=== PATIENT | male | born 1960 | race Hispanic/Latino ===

== ENCOUNTER 2020-08-22 12:07 | Inpatient (IN) | payer MEDICARE ==
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
--- NOTE | 2020-08-22 12:56 | Event Note ---
Date of service: 08/22/20 Face to Face: The patient was evaluated in the emergency department for symptoms described in the history of present illness. He/she was evaluated in the context of the global COVID-19 pandemic, which necessitated consideration that the patient might be at risk for infection with the virus that causes COVID-19. Institutional protocols and algorithms that pertain to the evaluation of patients at risk for COVID-19 are in a state of rapid change based on information released by regulatory bodies including the CDC and federal and state organizations. These policies and algorithms were followed during the patient's care in the emergency department. Please note that these policies, procedures and recommendations changed on a rapid basis. Patient is a 60-year-old gentleman. He is not known to myself previously. He presents to the ER with a complaint of left foot pain and swelling. This has been going on for about a month. Denies all other injuries or complaints. States the pain is aching and throbbing, and increases with range of motion, and ambulation. He denies hematemesis of bright red blood per rectum. He denies tingling and numbness. On examination: Head normocephalic atraumatic Neck is supple, with no meningeal signs. S1, S2, regular rate and rhythm. No murmurs, rubs or gallops. Breath sounds: Clear to auscultation bilaterally. Abdomen soft and benign, without rebound, guarding or peritoneal signs. There is no pulsatile abdominal mass. No spinal step-offs, full range of motion to the back, with no redness, pus or streaking. Extremities: 2+ radial pulses bilaterally. 2+ femoral pulses bilaterally. Left lower extremity distally is cool, and red, with delayed capillary refill, and unable to appreciate distal lower extremity pulses. Right lower extremity is warm and well-perfused, with 2+ dorsalis pedis pulses. Muscular compartments are soft. Patient found to have evidence of presumed subacute arterial occlusion. Have discussed pertinent history, physical, ultrasound/duplex results with vascular surgeon, Dr. Grant, who will come by and evaluate the patient shortly, and make further recommendations. Vital Signs 08/22/20 12:12 Temperature 97.3 F L Pulse Rate 84 Respiratory 18 Rate Blood Pressure 206/99 O2 Sat by Pulse 99 Oximetry Lab Results 08/22/20 08/22/20 08/22/20 Range/Units 12:51 12:51 12:51 WBC 9.4 (4.5-11.0) K/mm3 RBC 5.16 H (3.65-5.03) M/mm3 Hgb 14.7 (11.8-15.2) gm/dl Hct 44.0 (35.5-45.6) % MCV 85 (84-94) fl MCH 29 (28-32) pg MCHC 33 (32-34) % RDW 16.2 H (13.2-15.2) % Plt Count 334 (140-440) K/mm3 Lymph % (Auto) 21.9 (13.4-35.0) % [place] % (Auto) 6.7 (0.0-7.3) % Eos % (Auto) 2.2 (0.0-4.3) % Baso % (Auto) 0.6 (0.0-1.8) % Lymph # (Auto) 2.1 (1.2-5.4) K/mm3 [place] # (Auto) 0.6 (0.0-0.8) K/mm3 Eos # (Auto) 0.2 (0.0-0.4) K/mm3 Baso # (Auto) 0.1 (0.0-0.1) K/mm3 Seg Neutrophils % 68.6 (40.0-70.0) % Seg Neutrophils # 6.4 (1.8-7.7) K/mm3 PT 11.5 L (12.2-14.9) Sec. INR 0.86 L (0.87-1.13) APTT 24.1 L (24.2-36.6) Sec. Sodium 142 (137-145) mmol/L Potassium 4.5 (3.6-5.0) mmol/L Chloride 103.9 (98-107) mmol/L Carbon Dioxide 29 (22-30) mmol/L Anion Gap 14 mmol/L BUN 21 H (9-20) mg/dL Creatinine 0.8 (0.8-1.3) mg/dL Estimated GFR > 60 ml/min BUN/Creatinine Ratio 26 % Glucose 100 (75-100) mg/dL Calcium 9.0 (8.4-10.2) mg/dL Total Bilirubin 0.20 (0.1-1.2) mg/dL AST 11 (5-40) units/L ALT 16 (7-56) units/L Alkaline Phosphatase 135 H (35-129) units/L Total Protein 7.6 (6.3-8.2) g/dL Albumin 4.0 (3.9-5) g/dL Albumin/Globulin Ratio 1.1 % DUPLEX DOPPLER LOWER EXTREMITY VEINS, LEFT INDICATION: LLE swelling, pain, discoloration. TECHNIQUE: Duplex doppler imaging was performed through the veins of the left lower extremity using venous compression and other maneuvers. COMPARISON: No relevant prior imaging study available. FINDINGS: Left Common femoral vein: Negative. Left Superficial femoral vein: Negative. Left Popliteal vein: Negative. Left Calf veins: Negative. Additional findings: None. IMPRESSION: No sonographic evidence for DVT in the left lower extremity. Signer Name: Erasmo Yu Jr, MD Signed: 08/22/2020 12:58 PM Workstation Name: [id number] DUPLEX DOPPLER LOWER EXTREMITY ARTERIAL, LEFT INDICATION / CLINICAL INFORMATION: LLE swelling, pain, discoloration. TECHNIQUE: Arterial duplex examination of the left lower extremity performed using B-mode, color flow and spectral Doppler assessment. FINDINGS: LEFT: - Atherosclerotic Plaque & Vessel: There is diffuse atherosclerotic disease throughout the left lower extremity arterial tree. - Elevated Velocity (>200 cm/s) & Vessel: No elevated peak systolic velocities. However, there is very slow flow below the knee (8-16 cm/s). - Abnormal Waveform & Vessel: There are monophasic waveforms below the left knee. ADDITIONAL FINDINGS: There is complete occlusion extending proximally from the superficial femoral artery distally to the popliteal artery. IMPRESSION: 1. Diffuse atherosclerotic disease. 2. Complete occlusion of the left superficial femoral artery and popliteal artery. 3. Decreased velocities and monophasic waveforms below the left knee. CT or conventional angiogram should be considered. Doppler Waveform: - Triphasic is normal. - Biphasic is abnormal if clear transition from triphasic signal along vascular tree. - Monophasic is abnormal. Signer Name: Lui Velez MD Signed: 08/22/2020 1:06 PM Workstation Name: [id number] For this encounter I have reviewed the PA/PATTERN[employer] GRADER documentation, treatment plan, medical decision making, and I had face to face time with this patient.
[2020-08-22] MEDS ORDERED: HYDROcodone/ACETAMINOPHEN 5-325 MG TAB PO ONE (13:17)
[2020-08-22 13:39] LABS: Basophils # (Auto) 0.1 K/mm3 (0.0-0.1); Basophils % (Auto) 0.6 % (0.0-1.8); Eosinophils # (Auto) 0.2 K/mm3 (0.0-0.4); Eosinophils % (Auto) 2.2 % (0.0-4.3); Hemoglobin 14.7 gm/dl (11.8-15.2); Lymphocytes # (Auto) 2.1 K/mm3 (1.2-5.4); Lymphocytes % (Auto) 21.9 % (13.4-35.0); Mean Corpuscular HGB Conc 33 % (32-34); Mean Corpuscular Volume 85 fl (84-94); Monocytes # (Auto) 0.6 K/mm3 (0.0-0.8); Monocytes % (Auto) 6.7 % (0.0-7.3); Platelet Count 334 K/mm3 (140-440); Red Blood Count 5.16 M/mm3 (3.65-5.03); Red Cell Distribution Width 16.2 % (13.2-15.2)
[2020-08-22 13:49] LABS: INR 0.86 (0.87-1.13)
[2020-08-22 13:50] LABS: Partial Thromboplastin Time 24.1 Sec. (24.2-36.6)
--- NOTE | 2020-08-22 14:02 | Vascular Lab Report ---
DUPLEX DOPPLER LOWER EXTREMITY VEINS, LEFT INDICATION: LLE swelling, pain, discoloration. TECHNIQUE: Duplex doppler imaging was performed through the veins of the left lower extremity using venous compression and other maneuvers. COMPARISON: No relevant prior imaging study available. FINDINGS: Left Common femoral vein: Negative. Left Superficial femoral vein: Negative. Left Popliteal vein: Negative. Left Calf veins: Negative. Additional findings: None. IMPRESSION: No sonographic evidence for DVT in the left lower extremity. Signer Name: Erasmo Yu Jr, MD Signed: 08/22/2020 1:58 PM Workstation Name: [id number]
[2020-08-22 14:07] LABS: Alanine Aminotransferase 16 units/L (7-56); BUN/Creatinine Ratio 26; Blood Urea Nitrogen 21 mg/dL (9-20); Hemolysis Index 2
--- NOTE | 2020-08-22 14:10 | Vascular Lab Report ---
DUPLEX DOPPLER LOWER EXTREMITY ARTERIAL, LEFT INDICATION / CLINICAL INFORMATION: LLE swelling, pain, discoloration. TECHNIQUE: Arterial duplex examination of the left lower extremity performed using B-mode, color flow and spectr al Doppler assessment. FINDINGS: LEFT: - Atherosclerotic Plaque & Vessel: There is diffuse atherosclerotic disease throughout the left lower extremity arterial tree. - Elevated Velocity (>200 cm/s) & Vessel: No elevated peak systolic velocities. However, there is evelyn y slow flow below the knee (8-16 cm/s). - Abnormal Waveform & Vessel: There are monophasic waveforms below the left knee. ADDITIONAL FINDINGS: There is complete occlusion extending proximally from the superficial femoral ar zbigniew distally to the popliteal artery. IMPRESSION: 1. Diffuse atherosclerotic disease. 2. Complete occlusion of the left superficial femoral artery and popliteal artery. 3. Decreased velocities and monophasic waveforms below the left knee. CT or conventional angiogram should be considered. Doppler Waveform: - Triphasic is normal. - Biphasic is abnormal if clear transition from triphasic signal along vascular tree. - Monophasic is abnormal. Signer Name: Lui Velez MD Signed: 08/22/2020 2:06 PM Workstation Name: [id number]
[2020-08-22] MEDS ORDERED: ONDANSETRON 4 MG/2 ML INJ IV PRN (15:01)
[2020-08-22] MEDS ORDERED: MORPHINE 4 MG/1 ML INJ IV PRN (15:01)
[2020-08-22] MEDS ORDERED: ACETAMINOPHEN 325 MG TAB PO PRN (15:01)
[2020-08-22] MEDS ORDERED: HEPARIN 10,000 UNITS/10 ML VIAL IV PRN (15:02)
[2020-08-22] MEDS ORDERED: HEPARIN 10,000 UNITS/10 ML VIAL IV ONE (15:02)
--- NOTE | 2020-08-22 15:16 | History and Physical Report ---
History of Present Illness Chief complaint: My leg hurts History of present illness: 60 YO Male with HTN, Nicotine Dependence, DJD, Medication Noncompliance presents to ED for evaluation. Pt reports "My left leg hurts". Patient states that he has experienced left leg pain over the past 1 month with acutely worsening symptoms over the last 1 day. Patient states pain is 6/10, constant, throbbing in nature, worsened with weightbearing,. Patient transported to [facility] via private vehicle for further care and evaluation of the aforementioned symptoms. Patient was seen and evaluated in the emergency department. All lab and imaging studies reviewed. Patient underwent arterial Doppler which revealed left superficial femoral artery and left popliteal artery occlusion. Vascular surgery consulted. Patient treated with therapeutic anticoagulation and admission to telemetry due to increased risk of worsening symptoms. Patient denies fever, chills, chest pain, palpitation, productive cough, skin rash, recent ill contacts, or known exposure to COVID-19. No prior admission for review. All medication listed at time of admission has been reconciled. Past History Past Medical History: hypertension, other (See HPI) Past Surgical History: Other (Cervical spine surgery) Social history: smoking Family history: hypertension Medications and Allergies Allergies Allergy/AdvReac Type Severity Reaction Status Date / Time No Known Allergies Allergy Verified 08/22/20 15:04 Home Medications Medication Instructions Recorded Confirmed Last Taken Type Cyclobenzaprine HCl [Flexeril 5 MG 5 mg PO TID PRN #20 tab 02/02/15 Unknown Rx TAB] Ibuprofen [Motrin 800 MG tab] 800 mg PO Q8HR PRN #20 tablet 02/02/15 Unknown Rx Active Meds: Active Medications Acetaminophen (Acetaminophen 325 Mg Tab) 650 mg PO Q4H PRN PRN Reason: Pain MILD(1-3)/Fever >100.5/LIRIANO Heparin Sodium (Porcine) (Heparin 10,000 Units/10 Ml Vial) 3,200 unit 40 unit/kg (3200 unit) IV Q6H PRN PRN Reason: Anti-Xa Assay < 0.1 units/ml Heparin Sodium/Sodium Chloride (Heparin/ 0.45% Nacl-25,000 Unit/500 Ml) 25,000 unit in 500 mls @ 23 mls/hr IV TITR FEI; Protocol Sodium Chloride (Nacl 0.9% 500 Ml) 500 mls @ 999 mls/hr IV ONCE ONE Stop: 08/22/20 15:32 Morphine Sulfate (Morphine 4 Mg/1 Ml Inj) 1 mg IV Q4H PRN PRN Reason: Pain , Severe (7-10) Ondansetron HCl (Ondansetron 4 Mg/2 Ml Inj) 4 mg IV Q8H PRN PRN Reason: Nausea And Vomiting Oxycodone/Acetaminophen (Oxycodone /Acetaminophen 5-325mg Tab) 1 tab PO Q6H PRN PRN Reason: Pain, Moderate (4-6) Sodium Chloride (Sodium Chloride 0.9% 10 Ml Flush Syringe) 10 ml IV BID FEI Sodium Chloride (Sodium Chloride 0.9% 10 Ml Flush Syringe) 10 ml IV PRN PRN PRN Reason: LINE FLUSH Review of Systems Constitutional: no weight loss, no weight gain, no fever, no chills Ears, nose, mouth and throat: no ear pain, no ear discharge, no nasal congestion, no nasal discharge, no sinus pressure Cardiovascular: no chest pain, no orthopnea, no palpitations, no rapid/irregular heart beat, no edema, no syncope Respiratory: no cough, no cough with sputum, no hemoptysis, no shortness of breath Gastrointestinal: no abdominal pain, no nausea, no constipation, no hematemesis Genitourinary Male: no hematuria, no flank pain, no discharge, no urinary frequency, no nocturia Rectal: no pain, no incontinence, no bleeding Musculoskeletal: no neck stiffness, no neck pain, no arm numbness/tingling, no shooting leg pain, no leg numbness/tingling Integumentary: no rash, no pruritis, no redness, no sores Neurological: no transient paralysis, no weakness, no numbness, no tingling Psychiatric: no anxiety, no change in sleep habits, no insomnia, no hypersomnia, no suicidal ideation Endocrine: no cold intolerance, no heat intolerance, no polyphagia, no excessive sweating Hematologic/Lymphatic: no easy bruising, no easy bleeding Exam - Constitutional Vitals: Temp Pulse Resp BP Pulse Ox 97.3 F L 84 18 206/99 99 08/22/20 12:12 08/22/20 12:12 08/22/20 12:12 08/22/20 12:12 08/22/20 12:12 General appearance: Present: mild distress - EENT Eyes: Present: PERRL ENT: hearing intact, clear oral mucosa - Neck Neck: Present: supple, normal ROM - Respiratory Respiratory effort: normal Respiratory: bilateral: CTA - Cardiovascular Heart Sounds: Present: S1 & S2. Absent: rub, click - Extremities Extremities: pulses symmetrical, No edema Extremity abnormal: cold, pulses diminished, tenderness Peripheral Pulses: abnormal (Diminished pulses left femoral, left popliteal) - Abdominal General gastrointestinal: Present: soft, non-tender, non-distended, normal bowel sounds Male genitourinary: Present: normal - Integumentary Integumentary: Present: clear, warm, dry - Musculoskeletal Musculoskeletal: gait normal, strength equal bilaterally - Psychiatric Psychiatric: appropriate mood/affect, intact judgment & insight - Neurologic Neurologic: CNII-XII intact, moves all extremities Results - Labs CBC & Chem 7: 08/22/20 15:12 08/22/20 12:51 Labs: Abnormal lab results 08/22/20 08/22/20 08/22/20 Range/Units 12:51 12:51 12:51 RBC 5.16 H (3.65-5.03) M/mm3 RDW 16.2 H (13.2-15.2) % PT 11.5 L (12.2-14.9) Sec. INR 0.86 L (0.87-1.13) APTT 24.1 L (24.2-36.6) Sec. BUN 21 H (9-20) mg/dL Alkaline Phosphatase 135 H (35-129) units/L Total Creatine Kinase (55-170) units/L 08/22/20 Range/Units 12:51 RBC (3.65-5.03) M/mm3 RDW (13.2-15.2) % PT (12.2-14.9) Sec. INR (0.87-1.13) APTT (24.2-36.6) Sec. BUN (9-20) mg/dL Alkaline Phosphatase (35-129) units/L Total Creatine Kinase 30 L (55-170) units/L Assessment and Plan - Patient Problems (1) Femoral artery occlusion, left Current Visit: Yes Status: Acute Plan to address problem: Therapeutic anticoagulation with heparin, bilateral lower extremity duplex, CTA abdomen with runoff, vascular surgery consulted, surgical intervention as per surgery team. (2) Accelerated hypertension Current Visit: Yes Status: Acute Plan to address problem: Monitor blood pressure every shift, continue medical management. (3) Peripheral artery disease Current Visit: Yes Status: Acute Plan to address problem: Risk factor reduction, bilateral lower extremity Doppler, CT angio with runoffs, vascular surgery consulted, smoking cessation, supportive care. (4) Nicotine dependence Current Visit: Yes Status: Acute Qualifiers: Nicotine product type: cigarettes Substance use status: in withdrawal Qualified Code(s): F17.213 - Nicotine dependence, cigarettes, with withdrawal Plan to address problem: Smoking cessation counseling, supportive care, behavior change counseling, +15 minutes. (5) DVT prophylaxis Current Visit: Yes Status: Acute Plan to address problem: SCD to bilateral lower extremities while in bed, continue therapeutic anticoagulation.
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
[2020-08-22 15:24] LABS: Hemoglobin 13.9 gm/dl (11.8-15.2)
[2020-08-22] MEDS: HEPARIN/ 0.45% NACL DRIP 25,000 UNIT/500 ML BAG IV SCH (16:35)
--- NOTE | 2020-08-22 18:05 | Cat Scan Report ---
CTA ABDOMEN, PELVIS, AND LOWER EXTREMITIES INDICATION: arterial occlusion left left. TECHNIQUE: Axial CT images were obtained through the abdomen, pelvis and lower extremities after injection of IV contrast. 3 plane MIP reconstructions were produced. All CT scans at this location are performed usi ng CT dose reduction for YUMIKO by means of automated exposure control. COMPARISON: Ultrasound earlier today. FINDINGS: CTA ABDOMEN: Abdominal Aorta: Minimal atherosclerotic calcification. No acute finding. Caliber is normal. Celiac Artery: No significant abnormality. Superior Mesenteric Artery: No significant abnormality. Right Renal Artery: No significant abnormality. Left Renal Artery: No significant abnormality. Inferior Mesenteric Artery: No significant abnormality. CTA PELVIS: RIGHT: Common Iliac Artery: Mild atherosclerotic calcification and mild ectasia. Internal Iliac Artery: Chronically thrombosed. External Iliac Artery: No significant abnormality. LEFT: Common Iliac Artery: Mild atherosclerotic calcification. Internal Iliac Artery: Mild atherosclerotic calcification. External Iliac Artery: No significant abnormality. CTA LOWER EXTREMITIES: RIGHT LOWER EXTREMITY: Common Femoral Artery: No significant abnormality. Superficial Femoral Artery: No significant abnormality. Profunda Femoral Artery: No significant abnormality. Popliteal Artery: No significant abnormality. Anterior Tibial Artery: No significant abnormality. Tibioperoneal Trunk: No significant abnormality. Posterior Tibial Artery: No significant abnormality. Peroneal Artery: No significant abnormality. Ankle runoff: Three vessel. LEFT LOWER EXTREMITY: Common Femoral Artery: No significant abnormality. Superficial Femoral Artery: There is high-grade stenosis within the proximal several centimeters of t he vessel. There is complete occlusion distal to this. Profunda Femoral Artery: No significant abnormality. Popliteal Artery: Complete occlusion. Anterior Tibial Artery: Diminutive throughout. Tibioperoneal Trunk: Complete occlusion. Posterior Tibial Artery: Reconstituted by collaterals and patent. Peroneal Artery: Reconstituted by collaterals and patent. Ankle runoff: Three vessel. NONTARGET STRUCTURES: ABDOMEN:Hepatic steatosis. No acute process. PELVIS:Colonic diverticulosis. Bladder wall thickening may be due at least in part to bladder decompr ession. LOWER EXTREMITIES:No significant abnormality. SKELETAL: No significant abnormality. ADDITIONAL FINDINGS: None. IMPRESSION: 1. There is advanced narrowing of the proximal left superficial femoral artery. A majority of the lef t SFA is completely occluded, as is the left popliteal artery and tibioperoneal trunk. The left calf vessels are reconstituted and there appears to be three-vessel runoff to the left ankle. The left ant erior tibial artery is diminutive with probable high-grade stenosis throughout. 2. No significant stenosis or occlusion is seen in the right lower extremity. 3. Additional incidental findings as above. Signer Name: Lui Velez MD Signed: 08/22/2020 6:00 PM Workstation Name: [id number]
[2020-08-22] MEDS ORDERED: SODIUM CHLORIDE 0.9% 500 ML 500 ML ONE (18:42)
[2020-08-22] MEDS: SODIUM CHLORIDE 0.9% 500 ML 500 ML IV ONE ×2 (18:47→19:30)
[2020-08-22] MEDS: oxyCODONE /ACETAMINOPHEN 5-325MG TAB PO PRN (19:35)
[2020-08-23 05:03] LABS: Basophils % (Auto) 0.4 % (0.0-1.8); Eosinophils # (Auto) 0.2 K/mm3 (0.0-0.4); Eosinophils % (Auto) 2.1 % (0.0-4.3); Hematocrit 42.5 % (35.5-45.6); Hemoglobin 13.9 gm/dl (11.8-15.2); Lymphocytes # (Auto) 2.5 K/mm3 (1.2-5.4); Lymphocytes % (Auto) 26.3 % (13.4-35.0); Mean Corpuscular HGB Conc 33 % (32-34); Mean Corpuscular Volume 85 fl (84-94); Monocytes # (Auto) 0.6 K/mm3 (0.0-0.8); Monocytes % (Auto) 6.6 % (0.0-7.3); Platelet Count 306 K/mm3 (140-440); Red Blood Count 4.97 M/mm3 (3.65-5.03); Red Cell Distribution Width 16.2 % (13.2-15.2)
[2020-08-23 05:24] LABS: BUN/Creatinine Ratio 22; Blood Urea Nitrogen 20 mg/dL (9-20); Calcium 9.2 mg/dL (8.4-10.2); Hemolysis Index 1
[2020-08-23] MEDS: oxyCODONE /ACETAMINOPHEN 5-325MG TAB PO PRN (08:46)
[2020-08-23] MEDS: HEPARIN/ 0.45% NACL DRIP 25,000 UNIT/500 ML BAG IV SCH (08:56)
--- NOTE | 2020-08-23 08:58 | Progress Note ---
Assessment and Plan Assessment and plan: Critical limb ischemia/left femoral artery occlusion. Arterial Doppler demonstrates occlusion of the left proximal superficial femoral artery to popliteal artery. Peripheral vascular disease. As above. Accelerated hypertension. Continue antihypertensive medications. Tobacco abuse. Patient has a 81-95-uaps-year history of smoking 08/23/2020. CTA revealed advanced narrowing of the proximal left superficial femoral artery with a majority of the left S FA completely occluded along with the left popliteal artery and tibioperoneal trunk. The left calf vessels are reconstituted and there appears to be three-vessel runoff to the left ankle. The left anterior tibial artery is diminutive with probable high-grade stenosis throughout. Continue heparin drip per vascular recommendations. Continue IV fluid hydration. Patient for Trial Consultant today for revascularization. Patient understands that without revascularization he will have limb loss given his symptoms with gangrene. History Interval history: No new issues overnight. Hospitalist Physical - Constitutional Vitals: Temp Pulse Resp BP Pulse Ox 97.8 F 68 18 154/77 97 08/23/20 08:00 08/23/20 08:00 08/23/20 08:00 08/23/20 08:00 08/23/20 08:00 General appearance: Present: mild distress - EENT Eyes: Present: PERRL, EOM intact ENT: hearing intact, clear oral mucosa, dentition normal - Neck Neck: Present: supple, normal ROM - Respiratory Respiratory effort: normal Respiratory: bilateral: CTA - Cardiovascular Rhythm: regular Heart Sounds: Present: S1 & S2. Absent: gallop, rub - Extremities Extremities: no ischemia, No edema, Full ROM - Abdominal General gastrointestinal: soft, non-tender, non-distended, normal bowel sounds - Integumentary Integumentary: Present: clear, warm, dry - Neurologic Neurologic: CNII-XII intact, moves all extremities Results - Labs CBC & Chem 7: 08/23/20 04:25 08/23/20 04:25 Labs: Laboratory Last Values WBC 9.7 K/mm3 (4.5-11.0) 08/23/20 04:25 RBC 4.97 M/mm3 (3.65-5.03) 08/23/20 04:25 Hgb 13.9 gm/dl (11.8-15.2) 08/23/20 04:25 Hct 42.5 % (35.5-45.6) 08/23/20 04:25 MCV 85 fl (84-94) 08/23/20 04:25 MCH 28 pg (28-32) 08/23/20 04:25 MCHC 33 % (32-34) 08/23/20 04:25 RDW 16.2 % (13.2-15.2) H 08/23/20 04:25 Plt Count 306 K/mm3 (140-440) 08/23/20 04:25 Lymph % (Auto) 26.3 % (13.4-35.0) 08/23/20 04:25 [place] % (Auto) 6.6 % (0.0-7.3) 08/23/20 04:25 Eos % (Auto) 2.1 % (0.0-4.3) 08/23/20 04:25 Baso % (Auto) 0.4 % (0.0-1.8) 08/23/20 04:25 Lymph # (Auto) 2.5 K/mm3 (1.2-5.4) 08/23/20 04:25 [place] # (Auto) 0.6 K/mm3 (0.0-0.8) 08/23/20 04:25 Eos # (Auto) 0.2 K/mm3 (0.0-0.4) 08/23/20 04:25 Baso # (Auto) 0.0 K/mm3 (0.0-0.1) 08/23/20 04:25 Seg Neutrophils % 64.6 % (40.0-70.0) 08/23/20 04:25 Seg Neutrophils # 6.3 K/mm3 (1.8-7.7) 08/23/20 04:25 PT 11.5 Sec. (12.2-14.9) L 08/22/20 12:51 INR 0.86 (0.87-1.13) L 08/22/20 12:51 APTT 24.1 Sec. (24.2-36.6) L 08/22/20 12:51 Heparin Anti-Xa Level 0.14 U.I./ml (0.3-0.7) L 08/23/20 07:21 Sodium 138 mmol/L (137-145) 08/23/20 04:25 Potassium 4.5 mmol/L (3.6-5.0) 08/23/20 04:25 Chloride 101.8 mmol/L (98-107) 08/23/20 04:25 Carbon Dioxide 27 mmol/L (22-30) 08/23/20 04:25 Anion Gap 14 mmol/L 08/23/20 04:25 BUN 20 mg/dL (9-20) 08/23/20 04:25 Creatinine 0.9 mg/dL (0.8-1.3) 08/23/20 04:25 Estimated GFR > 60 ml/min 08/23/20 04:25 BUN/Creatinine Ratio 22 % 08/23/20 04:25 Glucose 101 mg/dL (75-100) H 08/23/20 04:25 Calcium 9.2 mg/dL (8.4-10.2) 08/23/20 04:25 Total Bilirubin 0.20 mg/dL (0.1-1.2) 08/22/20 12:51 AST 11 units/L (5-40) 08/22/20 12:51 ALT 16 units/L (7-56) 08/22/20 12:51 Alkaline Phosphatase 135 units/L (35-129) H 08/22/20 12:51 Total Creatine Kinase 30 units/L (55-170) L 08/22/20 12:51 Total Protein 7.6 g/dL (6.3-8.2) 08/22/20 12:51 Albumin 4.0 g/dL (3.9-5) 08/22/20 12:51 Albumin/Globulin Ratio 1.1 % 08/22/20 12:51 Active Medications - Current Medications Current Medications: Generic Name Dose Route Start Last Admin Trade Name Freq PRN Reason Stop Dose Admin Acetaminophen 650 mg 08/22/20 15:01 Acetaminophen 325 Mg Tab PO Q4H PRN Pain MILD(1-3)/Fever >100.5/LIRIANO Heparin Sodium (Porcine) 3,200 unit 08/22/20 15:02 Heparin 10,000 Units/10 Ml Vial 40 unit/kg (3200 unit) IV Q6H PRN Anti-Xa Assay < 0.1 units/ml Heparin Sodium/Sodium Chloride 25,000 unit in 500 mls @ 23 mls/hr 08/22/20 16:00 08/23/20 08:48 Heparin/ 0.45% Nacl-25,000 Unit/500 Ml IV 1,200 units/hr TITR FEI 24 mls/hr Titration Protocol 1,150 UNITS/HR Morphine Sulfate 1 mg 08/22/20 15:01 08/22/20 15:53 Morphine 4 Mg/1 Ml Inj IV 1 mg Q4H PRN Administration Pain , Severe (7-10) Ondansetron HCl 4 mg 08/22/20 15:01 Ondansetron 4 Mg/2 Ml Inj IV Q8H PRN Nausea And Vomiting Oxycodone/Acetaminophen 1 tab 08/22/20 15:01 08/23/20 08:46 Oxycodone /Acetaminophen 5-325mg Tab PO 1 tab Q6H PRN Administration Pain, Moderate (4-6) Sodium Chloride 10 ml 08/22/20 22:00 08/22/20 21:55 Sodium Chloride 0.9% 10 Ml Flush Syringe IV 10 ml BID FEI Administration Sodium Chloride 10 ml 08/22/20 15:01 Sodium Chloride 0.9% 10 Ml Flush Syringe IV PRN PRN LINE FLUSH
[2020-08-23] MEDS ORDERED: SODIUM CHLORIDE 0.9% 500 ML 500 ML ONE (12:55)
[2020-08-23] MEDS ORDERED: SODIUM CHLORIDE 0.9% 500 ML 500 ML IV SCH (13:00)
[2020-08-23] MEDS ORDERED: HEPARIN/NS 5000 UNIT/500ML 1,000 ML IR ONE (15:03)
[2020-08-23] MEDS: LIDOCAINE (2%) 20 MG/1 ML VIAL 20 ML MDV INFILTRATI ONE ×2 (15:54→16:00)
[2020-08-23] MEDS: MIDAZOLAM 2 MG/2 ML INJ ONE ×6 (15:54→17:27)
[2020-08-23] MEDS: fentaNYL 100 MCG/2 ML INJ ONE ×6 (15:54→17:27)
[2020-08-23] MEDS: HEPARIN 10,000 UNITS/10 ML VIAL ONE ×4 (16:33→18:55)
[2020-08-23] MEDS ORDERED: hydrALAZINE 20 MG/1 ML INJ ONE (16:54)
[2020-08-23] MEDS ORDERED: SODIUM CHLORIDE 0.9% 1000 ML 1,000 ML ONE ×2 (17:02→19:53)
[2020-08-23] MEDS: diphenhydrAMINE 50 MG/ML VIAL ONE ×2 (17:15→17:27)
[2020-08-23] MEDS ORDERED: NITROGLYCERIN SYRINGE 3 ML ONE ×2 (17:51→18:27)
[2020-08-23] MEDS ORDERED: WATER FOR INJ Sterile (PF) 10 ML ONE (18:27)
[2020-08-23] MEDS ORDERED: ALTEPLASE 2 MG INJ ONE ×2 (18:32→19:24)
[2020-08-23] MEDS ORDERED: HEPARIN/NS 5000 UNIT/500ML 500 ML IR ONE (18:57)
[2020-08-23] MEDS ORDERED: HEPARIN 10,000 UNITS/10 ML VIAL ONE (19:24)
[2020-08-23] MEDS ORDERED: ACETAMINOPHEN 325 MG TAB PO PRN (19:33)
[2020-08-23] MEDS ORDERED: HYDROcodone/ACETAMINOPHEN 5-325 MG TAB PO PRN (19:33)
[2020-08-23] MEDS ORDERED: ONDANSETRON 4 MG/2 ML INJ IV PRN (19:33)
[2020-08-23] MEDS ORDERED: MORPHINE 2 MG/1 ML INJ IV PRN (19:33)
[2020-08-23] MEDS ORDERED: MORPHINE 4 MG/1 ML INJ IV PRN (19:39)
[2020-08-23] MEDS ORDERED: ALTEPLASE 20 MG in SODIUM CHLORIDE 0.9% 500 ML 500 ML EKOSDLUMEN STA (19:42)
--- NOTE | 2020-08-23 19:43 | Operative Report ---
Operative Report Operative Report: Date of Procedure: 08/23/2020 Pre-operative Diagnosis: Left Lower Extremity Critical Limb Ischemia Post-operative Diagnosis: Same Procedure(s): 1. Ultrasound-Guided Access Right Common Femoral Artery 2. Diagnostic Aortogram (No Previous Films for Comparison) 3. Diagnostic Left Lower Extremity Angiogram (No Previous Films for Comparison) 4. Atherectomy with Angioplasty and Stenting of the Left SFA And Popliteal Artery With a 2.4/3.4 Jetstream Atherectomy Catheter, a 5.0 x 200 Angiosculpt Balloon & 5.0 x 150 IN.PACT Drug-Coated Balloon (x2) in The Popliteal Artery, and 6.0 x 200 Angiosculpt Balloon and 6.0 x 150 IN.Pact Drug-Coated Balloon (x2) in the SFA and a 7 x 200 & 7 x 120 EverFlex Self-Expanding Stent 5. Angioplasty and Stent Of Left Tibioperoneal Trunk with 4.0 x 150 IN.Pact Drug-Coated Balloon and 4.5 x 30 Medtronic Resolute Marcin Drug-Eluting Stent and 5.0 x 40 EverFlex Self-Expanding Stent 6. Angioplasty of left Posterior Tibial Artery with a 3.0 x 100 Angiosculpt Balloon and 4.0 x 150 IN.PACT Drug-Coated Balloon (x2) 7. Thrombolysis of Left Lower Extremity with 135 x 50 EKOS Thrombolysis Catheter 8. Radiologic Supervision with Interpretation 9. Monitored Moderate Sedation (Total Anesthesia Time: 212 Minutes) Surgeon: Justino Hay M.D. Director Of Occupational Therapy: None Anesthesia: Monitored Moderate Sedation Total Anesthesia Time: 212 Minutes EBL: Minimal Counts: Correct Complications: None Condition: Stable Specimen: None Indication: The patient is a 60-year-old male with a history of tobacco abuse who presented to the emergency department with a history of 1 month of left foot pain. He reports a history of falling and hitting his knee with some swelling around the knee and began noticing some pain in his left foot that he thought would eventually resolve. This progressed to numbness in the toes with progressively worsening pain. He eventually had to relieve his pain by hanging his foot off of the bed. This prompted him to present to the emergency department with his complaints. He underwent a CTA of his abdomen pelvis with runoff that demonstrated possible occlusion of the left SFA, popliteal artery, and origin of the tibial vessels. He is in need of a diagnostic angiogram with possible intervention. He was given the risk, benefits, and alternative procedures and consented to the procedure. Angiographic Findings: The diagnostic aortogram revealed that the aorta was patent without evidence of aneurysmal dilatation, thrombus, or flow-limiting stenosis. The bilateral common iliac arteries were patent without evidence of flow-limiting stenosis, aneurysmal dilatation, or thrombus. The left lower extremity angiogram revealed that the left hypogastric and external iliac arteries were both patent without evidence of flow-limiting stenosis. The left common femoral and profunda artery were patent without evidence of significant flow-limiting stenosis. The SFA had a short segment that was patent and was occluded with a sharp cut off with the appearance of possible thrombus. Multiple collaterals were seen throughout the thigh however there was no reconstitution of flow noted within the SFA or popliteal artery. The origin of the tibial vessels were all occluded. There was reconstitution of flow within the anterior tibial artery in the proximal portion of the artery however the artery was atretic throughout its course and occluded in the distal portion of the ankle. The tibial peroneal artery was occluded and the peroneal artery was filling through collaterals. The peroneal artery appeared to be patent throughout its course without significant flow- limiting stenosis and filled the dorsalis pedis artery in the foot through collaterals. The posterior tibial artery filled through collaterals in the distal third of the calf and was and was stenotic with approximately 40 to 50% stenosis throughout the remainder of its course but was patent into the foot. After intervention the SFA and popliteal artery were patent as well as the posterior tibial artery however the flow was sluggish secondary to thrombus that was noted in the distal posterior tibial artery. There was also thrombus noted in the distal popliteal artery. The EKOS Thrombolysis Catheter was placed with the distal tip in the mid posterior tibial artery and the proximal portion of the treatment zone was in the proximal SFA. Description of Procedure: The patient was brought to the [facility] and laid in supine position. After a timeout was performed his right groin was prepped and draped in normal sterile fashion. Ultrasound was used to identify the right common femoral artery and confirm patency. Once patency was confirmed the overlying skin and soft tissue was anesthetized with lidocaine. An 11 blade was used to make a small stab incision and then a curved hemostat was used with ultrasound guidance to bluntly dissect down to the anterior surface of the right common femoral artery. A 21- gauge micropuncture needle was used ultrasound guidance to enter the right common femoral artery and a 0.018 micropuncture wire was advanced to the artery. The needle was removed and the micropuncture sheath was advanced over the wire by Seldinger technique. The inner cannula and wire were removed and a 0.035 Bentson wire was advanced to the aorta. The micropuncture sheath was then exchanged for a 5 Swedish sheath by Seldinger technique. An Omni Flush catheter was advanced into the aorta and after removing the wire a diagnostic aortogram was performed with the previously described findings. The Omni Flush catheter and Bentson wire were then advanced up and over the bifurcation and a diagnostic left lower extremity angiogram was performed the previously described findings. I advanced the Bentson wire into the profunda artery and then exchanged the 5 Swedish sheath for a 7 Swedish 45 cm destination sheath and at that point I syste mically heparinized the patient with 5000 units of heparin IV and this was redosed with 1000 units of heparin IV every 45 minutes into the completion of the case. I then used a Navicross catheter and 0.018 Gladius Wire and was able to traverse the occluded SFA and advanced the wire into the distal posterior tibial artery. I was unable to advance the Navicross catheter over the wire so I exchanged the Navicross catheter for 0.018 [place] crossing catheter. I was only able to advance the crossing catheter into the distal popliteal artery so I exchanged the Gladius Wire for a 0.014 Choice PT wire. I was able to advance the Choice PT wire into the posterior tibial artery and then attempted to advance a 0.014 [place] crossing catheter into the posterior tibial artery however this was also unsuccessful so I used a 2.5-3.0 x 220 Nanocross Balloon and advanced this into the distal popliteal artery. I serially dilated a tract until I was able to advance this into the posterior tibial artery. Once the balloon was in the posterior tibial artery I exchanged the Choice PT wire for a 0.014 ThruWay Wire which I was able to advance into the pedal arch. I then used a 2.4/3.4 Jetstream Atherectomy Catheter to perform atherectomy of the SFA and popliteal artery with the blades down and blades up. I then performed angioplasty of the popliteal artery with a 5.0 x 200 Angiosculpt Balloon followed by angioplasty of the SFA with a 6.0 x 200 Angiosculpt Balloon. This was followed by angioplasty of the popliteal artery with 5.0 x 150 IN.PACT Drug- Coated Balloons (X2) and 6.0 x 150 IN.PACT Drug-Coated Balloons (x2). I then used a 3.0 x 100 Angiosculpt Balloon to perform angioplasty of the posterior tibial artery followed by angioplasty with 4.0 x 150 IN.PACT Balloons (x2). This resulted in the posterior tibial artery being patent with less than 10% residual stenosis however there was approximately 75% stenosis of the tibioperoneal trunk. There was some evidence of spasm within the arteries and pedal arch as well as possible small embolus at the distal posterior tibial artery. I advanced a Navicross catheter into the distal posterior tibial artery and was able to aspirate the thrombus. I then injected 600 mcg of nitroglycerin into the foot and 6 mg of TPA into the pedal arch. There were multiple areas of residual stenosis within the popliteal artery and SFA ranging from 50 to 70% and there appeared to be possible thrombus however the thrombus burden did not appear to be significant. I placed a 4.5 x 30 mm Medtronic Resolute Marcin Drug- Eluting Stent in the tibioperoneal trunk with a result of less than 15% residual stenosis. I then placed 7 x 200 and a 7 x 120 EverFlex Self-Expanding Stent extending from the proximal popliteal artery to the mid SFA. The stents were then postdilated with a 6 x 200 Sd balloon. The follow-up angiogram revealed that the flow was sluggish and it appeared that this was secondary to a small embolus in the proximal posterior tibial artery. I had removed my wire from the posterior tibial artery at this point and was going to perform a percutaneous embolectomy however upon trying to readvance my wire through my previously placed stent the wire would not easily passed through the stent. I eventually was able to use the Navicross catheter and a Bentson wire to pass the Bentson wire through the stent however the catheter would not pass. I used a 5 x 40 EverCross balloon to reopen the stent which appeared to have been crushed and then placed a 5 x 40 EverFlex Self-Expanding Stent within the previously placed stent to reinforce it. I was going to attempt to perform aspiration of the thrombus at this point however I performed another angiogram which revealed a significant amount of thrombus burden in the distal posterior tibial artery as well as what appeared to be thrombus in the popliteal artery. At this point I felt it would be a better plan to perform thrombolysis. I advanced an advantage wire into the distal posterior tibial artery and then advanced a 135 x 50 cm EKOS thrombolysis catheter into the distal posterior tibial artery. I primed the drug port with 4 mg of TPA and the coolant port with 2000 units of heparin. I primed the sheath with 3000 units of heparin. The sheath and thrombolysis catheter were then secured in position with 0 silks. The sheath and catheter were then dressed with sterile dressings. The patient tolerated the procedure well. He was transported to the intensive care unit in stable condition.
[2020-08-23] MEDS ORDERED: SODIUM CHLORIDE 0.9% 1000 ML 1,000 ML SHEATH SCH (19:45)
[2020-08-23] MEDS ORDERED: SODIUM CHLORIDE 0.9% 1000 ML 1,000 ML IV SCH ×2 (19:45)
[2020-08-23] MEDS ORDERED: SODIUM CHLORIDE 0.9% 1000 ML 1,000 ML EKOSCLUMEN SCH (19:45)
[2020-08-23 19:46] LABS: Basophils % (Auto) 0.3 % (0.0-1.8); Eosinophils # (Auto) 0.1 K/mm3 (0.0-0.4); Eosinophils % (Auto) 1.2 % (0.0-4.3); Hematocrit 42.6 % (35.5-45.6); Lymphocytes # (Auto) 1.5 K/mm3 (1.2-5.4); Lymphocytes % (Auto) 17.3 % (13.4-35.0); Mean Corpuscular HGB Conc 33 % (32-34); Mean Corpuscular Volume 85 fl (84-94); Monocytes # (Auto) 0.5 K/mm3 (0.0-0.8); Monocytes % (Auto) 5.3 % (0.0-7.3); Platelet Count 244 K/mm3 (140-440)
[2020-08-23] MEDS ORDERED: HEPARIN/ 0.45% NACL DRIP 25,000 UNIT/500 ML BAG ONE (19:53)
[2020-08-23 19:54] LABS: Blood Urea Nitrogen 17 mg/dL (9-20); Calcium 8.7 mg/dL (8.4-10.2); Hemolysis Index 12
[2020-08-23 19:58] LABS: BUN/Creatinine Ratio 24
[2020-08-23 20:00] LABS: INR 0.99 (0.87-1.13)
[2020-08-23] MEDS ORDERED: HEPARIN/ 0.45% NACL DRIP 25,000 UNIT/500 ML BAG SHEATH SCH (20:00)
[2020-08-23 21:14] LABS: Partial Thromboplastin Time 134.1 Sec. (24.2-36.6)
[2020-08-23] MEDS ORDERED: HALOPERIDOL 5 MG TAB PO PRN (21:15)
--- NOTE | 2020-08-23 21:29 | Event Note ---
Date: 08/23/20 Dr. Hay attempted revascularization but ultimately had to perform catheter directed thrombolysis of the left lower extremity. Contacted by ICU due to severe pain from left lower leg during thrombolysis. Still has baseline motor and sensory function. Only able to palpable right PT which is expected. Ordered dilaudid for pain control. Told patient tightening due to pain and does not listen and is shaking back and forth. Since unable to comply, will need to be sedated further. Ordered haldol for agitation.
[2020-08-23] MEDS: HYDROmorphone 1 MG/1 ML INJ IV PRN ×2 (21:40→23:45)
[2020-08-23] MEDS: SODIUM CHLORIDE 0.9% 1000 ML 1,000 ML IV SCH (21:40)
[2020-08-23] MEDS: HALOPERIDOL LACTATE 10 MG/5 ML ORAL LIQD PO PRN (21:56)
[2020-08-24] MEDS: HALOPERIDOL LACTATE 10 MG/5 ML ORAL LIQD PO PRN ×2 (00:57→04:05)
[2020-08-24 01:31] LABS: Basophils % (Auto) 0.2 % (0.0-1.8); Eosinophils % (Auto) 0.4 % (0.0-4.3); Hematocrit 39.5 % (35.5-45.6); Hemoglobin 13.1 gm/dl (11.8-15.2); Lymphocytes # (Auto) 1.7 K/mm3 (1.2-5.4); Lymphocytes % (Auto) 17.9 % (13.4-35.0); Mean Corpuscular HGB Conc 33 % (32-34); Mean Corpuscular Volume 85 fl (84-94); Monocytes # (Auto) 0.6 K/mm3 (0.0-0.8); Monocytes % (Auto) 6.2 % (0.0-7.3); Platelet Count 235 K/mm3 (140-440); Red Blood Count 4.63 M/mm3 (3.65-5.03); Red Cell Distribution Width 15.9 % (13.2-15.2)
[2020-08-24] MEDS: HYDROmorphone 1 MG/1 ML INJ IV PRN ×3 (01:56→06:02)
[2020-08-24 07:34] LABS: Basophils % (Auto) 0.3 % (0.0-1.8); Eosinophils % (Auto) 0.1 % (0.0-4.3); Hematocrit 38.9 % (35.5-45.6); Hemoglobin 12.7 gm/dl (11.8-15.2); Lymphocytes # (Auto) 0.9 K/mm3 (1.2-5.4); Mean Corpuscular HGB Conc 33 % (32-34); Mean Corpuscular Volume 86 fl (84-94); Monocytes # (Auto) 0.7 K/mm3 (0.0-0.8); Monocytes % (Auto) 8.8 % (0.0-7.3); Platelet Count 191 K/mm3 (140-440); Red Blood Count 4.54 M/mm3 (3.65-5.03); Red Cell Distribution Width 15.8 % (13.2-15.2)
[2020-08-24 07:50] LABS: BUN/Creatinine Ratio 19; Blood Urea Nitrogen 21 mg/dL (9-20); Calcium 8.8 mg/dL (8.4-10.2); Hemolysis Index 3
--- NOTE | 2020-08-24 10:29 | Progress Note ---
Assessment and Plan Assessment and plan: Critical limb ischemia/left femoral artery occlusion. Arterial Doppler demonstrates occlusion of the left proximal superficial femoral artery to popliteal artery. Peripheral vascular disease. As above. Accelerated hypertension. Continue antihypertensive medications. Tobacco abuse. Patient has a [id number]-pfge-year history of smoking 08/23/2020. CTA revealed advanced narrowing of the proximal left superficial femoral artery with a majority of the left SFA completely occluded along with the left popliteal artery and tibioperoneal trunk. The left calf vessels are reconstituted and there appears to be three-vessel runoff to the left ankle. The left anterior tibial artery is diminutive with probable high-grade stenosis throughout. Continue heparin drip per vascular recommendations. Continue IV fluid hydration. Patient for [employer] [facility] today for revascularization. Patient understands that without revascularization he will have limb loss given his symptoms with gangrene. 08/24/2020. Dr. Hay attempted revascularization but ultimately had to perform catheter directed thrombolysis of the left lower extremity on 08/23/2020. Continue medications for pain control. Continue heparin drip per vascular surgery. History Interval history: No new issues overnight. Hospitalist Physical - Constitutional Vitals: Temp Pulse Resp BP Pulse Ox 98.1 F 81 12 139/68 97 08/24/20 08:00 08/24/20 10:00 08/24/20 10:00 08/24/20 10:00 08/24/20 10:00 General appearance: Present: mild distress - EENT Eyes: Present: PERRL, EOM intact ENT: hearing intact, clear oral mucosa, dentition normal - Neck Neck: Present: supple, normal ROM - Respiratory Respiratory effort: normal Respiratory: bilateral: CTA - Cardiovascular Rhythm: regular Heart Sounds: Present: S1 & S2. Absent: gallop, rub - Extremities Extremities: no ischemia, No edema, Full ROM - Abdominal General gastrointestinal: soft, non-tender, non-distended, normal bowel sounds - Integumentary Integumentary: Present: clear, warm, dry - Neurologic Neurologic: CNII-XII intact, moves all extremities Results - Labs CBC & Chem 7: 08/24/20 07:16 08/24/20 07:16 Labs: Laboratory Last Values WBC 8.5 K/mm3 (4.5-11.0) 08/24/20 07:16 RBC 4.54 M/mm3 (3.65-5.03) 08/24/20 07:16 Hgb 12.7 gm/dl (11.8-15.2) 08/24/20 07:16 Hct 38.9 % (35.5-45.6) 08/24/20 07:16 MCV 86 fl (84-94) 08/24/20 07:16 MCH 28 pg (28-32) 08/24/20 07:16 MCHC 33 % (32-34) 08/24/20 07:16 RDW 15.8 % (13.2-15.2) H 08/24/20 07:16 Plt Count 191 K/mm3 (140-440) 08/24/20 07:16 Lymph % (Auto) 11.0 % (13.4-35.0) L 08/24/20 07:16 [place] % (Auto) 8.8 % (0.0-7.3) H 08/24/20 07:16 Eos % (Auto) 0.1 % (0.0-4.3) 08/24/20 07:16 Baso % (Auto) 0.3 % (0.0-1.8) 08/24/20 07:16 Lymph # (Auto) 0.9 K/mm3 (1.2-5.4) L 08/24/20 07:16 [place] # (Auto) 0.7 K/mm3 (0.0-0.8) 08/24/20 07:16 Eos # (Auto) 0.0 K/mm3 (0.0-0.4) 08/24/20 07:16 Baso # (Auto) 0.0 K/mm3 (0.0-0.1) 08/24/20 07:16 Seg Neutrophils % 79.8 % (40.0-70.0) H 08/24/20 07:16 Seg Neutrophils # 6.8 K/mm3 (1.8-7.7) 08/24/20 07:16 PT 12.9 Sec. (12.2-14.9) 08/23/20 19:30 INR 0.99 (0.87-1.13) 08/23/20 19:30 APTT 134.1 Sec. (24.2-36.6) H* 08/23/20 19:30 Fibrinogen 163 mg/dl (211-480) L 08/24/20 07:16 Heparin Anti-Xa Level 0.10 U.I./ml (0.3-0.7) L 08/24/20 07:16 Sodium 140 mmol/L (137-145) 08/24/20 07:16 Potassium 4.5 mmol/L (3.6-5.0) D 08/24/20 07:16 Chloride 105.0 mmol/L (98-107) 08/24/20 07:16 Carbon Dioxide 26 mmol/L (22-30) 08/24/20 07:16 Anion Gap 14 mmol/L 08/24/20 07:16 BUN 21 mg/dL (9-20) H 08/24/20 07:16 Creatinine 1.1 mg/dL (0.8-1.3) D 08/24/20 07:16 Estimated GFR > 60 ml/min 08/24/20 07:16 BUN/Creatinine Ratio 19 % 08/24/20 07:16 Glucose 114 mg/dL (75-100) H 08/24/20 07:16 Calcium 8.8 mg/dL (8.4-10.2) 08/24/20 07:16 Total Bilirubin 0.20 mg/dL (0.1-1.2) 08/22/20 12:51 AST 11 units/L (5-40) 08/22/20 12:51 ALT 16 units/L (7-56) 08/22/20 12:51 Alkaline Phosphatase 135 units/L (35-129) H 08/22/20 12:51 Total Creatine Kinase 30 units/L (55-170) L 08/22/20 12:51 Total Protein 7.6 g/dL (6.3-8.2) 08/22/20 12:51 Albumin 4.0 g/dL (3.9-5) 08/22/20 12:51 Albumin/Globulin Ratio 1.1 % 08/22/20 12:51 Keyes/IV: Voiding Method Urinal Active Medications - Current Medications Current Medications: Generic Name Dose Route Start Last Admin Trade Name Freq PRN Reason Stop Dose Admin Acetaminophen 650 mg 08/22/20 15:01 Acetaminophen 325 Mg Tab PO Q4H PRN Pain MILD(1-3)/Fever >100.5/LIRIANO Hydrocodone Bitart/Acetaminophen 2 each 08/23/20 19:33 Hydrocodone/Acetaminophen 5-325 Mg Tab PO Q6H PRN Pain, Moderate (4-6) Haloperidol Lactate 10 mg 08/23/20 21:19 08/24/20 04:05 Haloperidol Lactate 10 Mg/5 Ml Oral Liqd PO 10 mg Q3H PRN Administration Agitation Hydromorphone HCl 1 mg 08/24/20 03:22 08/24/20 06:02 Hydromorphone 1 Mg/1 Ml Inj IV 1 mg Q1H PRN Administration Pain , Severe (7-10) Alteplase, Recombinant 20 mg/ 500 mls @ 25 mls/hr 08/23/20 19:42 08/24/20 07:25 Sodium Chloride EKOSDLUMEN 08/24/20 15:41 Not Given DIRECT STA Heparin Sodium/Sodium Chloride 25,000 unit in 500 mls @ 10 mls/hr 08/23/20 20:00 Heparin/ 0.45% Nacl-25,000 Unit/500 Ml SHEATH DIRECT FEI Protocol 500 UNITS/HR Sodium Chloride 1,000 mls @ 30 mls/hr 08/23/20 19:45 Nacl 0.9% 1000 Ml IV DIRECT FEI Sodium Chloride 1,000 mls @ 30 mls/hr 08/23/20 19:45 Nacl 0.9% 1000 Ml SHEATH DIRECT FEI Sodium Chloride 1,000 mls @ 35 mls/hr 08/23/20 19:45 Nacl 0.9% 1000 Ml EKOSCLUMEN DIRECT FEI Sodium Chloride 1,000 mls @ 75 mls/hr 08/23/20 20:16 08/23/20 21:40 Nacl 0.9% 1000 Ml IV 75 mls/hr DIRECT FEI Administration Morphine Sulfate 4 mg 08/23/20 19:39 Morphine 4 Mg/1 Ml Inj IV Q4H PRN Pain , Severe (7-10) Ondansetron HCl 4 mg 08/23/20 19:33 08/23/20 23:45 Ondansetron 4 Mg/2 Ml Inj IV 4 mg Q8H PRN Administration Nausea And Vomiting Oxycodone/Acetaminophen 1 tab 08/22/20 15:01 08/23/20 08:46 Oxycodone /Acetaminophen 5-325mg Tab PO 1 tab Q6H PRN Administration Pain, Moderate (4-6) Sodium Chloride 10 ml 08/22/20 22:00 08/23/20 21:41 Sodium Chloride 0.9% 10 Ml Flush Syringe IV 10 ml BID FEI Administration Sodium Chloride 10 ml 08/22/20 15:01 Sodium Chloride 0.9% 10 Ml Flush Syringe IV PRN PRN LINE FLUSH
--- NOTE | 2020-08-24 10:44 | Consultation ---
History of Present Illness Consult date: 08/24/20 Requesting physician: WESLY BRAY Reason for consult: other (Acute Limb Ischemia s/p Angioplasty and Thrombolysis) History of present illness: PCCM CONSULT NOTE (Full dictation # [id number]) Please see dictated notes for full details Past History Past Medical History: hypertension, other (See HPI) Past Surgical History: Other (Cervical spine surgery) Social history: smoking Family history: hypertension Medications and Allergies Allergies Allergy/AdvReac Type Severity Reaction Status Date / Time No Known Allergies Allergy Verified 08/22/20 15:04 Home Medications Medication Instructions Recorded Confirmed Last Taken Type Cyclobenzaprine HCl [Flexeril 5 MG 5 mg PO TID PRN #20 tab 02/02/15 Unknown Rx TAB] Ibuprofen [Motrin 800 MG tab] 800 mg PO Q8HR PRN #20 tablet 02/02/15 Unknown Rx Active Meds: Active Medications Acetaminophen (Acetaminophen 325 Mg Tab) 650 mg PO Q4H PRN PRN Reason: Pain MILD(1-3)/Fever >100.5/LIRIANO Hydrocodone Bitart/Acetaminophen (Hydrocodone/Acetaminophen 5-325 Mg Tab) 2 each PO Q6H PRN PRN Reason: Pain, Moderate (4-6) Haloperidol Lactate (Haloperidol Lactate 10 Mg/5 Ml Oral Liqd) 10 mg PO Q3H PRN PRN Reason: Agitation Last Admin: 08/24/20 04:05 Dose: 10 mg Documented by: Hydromorphone HCl (Hydromorphone 1 Mg/1 Ml Inj) 1 mg IV Q1H PRN PRN Reason: Pain , Severe (7-10) Last Admin: 08/24/20 06:02 Dose: 1 mg Documented by: Alteplase, Recombinant 20 mg/ (Sodium Chloride) 500 mls @ 25 mls/hr EKOSDLUMEN DIRECT STA Stop: 08/24/20 15:41 Last Admin: 08/24/20 07:25 Dose: Not Given Documented by: Heparin Sodium/Sodium Chloride (Heparin/ 0.45% Nacl-25,000 Unit/500 Ml) 25,000 unit in 500 mls @ 10 mls/hr SHEATH DIRECT FEI; Protocol Sodium Chloride (Nacl 0.9% 1000 Ml) 1,000 mls @ 30 mls/hr IV DIRECT FEI Sodium Chloride (Nacl 0.9% 1000 Ml) 1,000 mls @ 30 mls/hr SHEATH DIRECT FEI Sodium Chloride (Nacl 0.9% 1000 Ml) 1,000 mls @ 35 mls/hr EKOSCLUMEN DIRECT FEI Sodium Chloride (Nacl 0.9% 1000 Ml) 1,000 mls @ 75 mls/hr IV DIRECT FEI Last Admin: 08/23/20 21:40 Dose: 75 mls/hr Documented by: Morphine Sulfate (Morphine 4 Mg/1 Ml Inj) 4 mg IV Q4H PRN PRN Reason: Pain , Severe (7-10) Ondansetron HCl (Ondansetron 4 Mg/2 Ml Inj) 4 mg IV Q8H PRN PRN Reason: Nausea And Vomiting Last Admin: 08/23/20 23:45 Dose: 4 mg Documented by: Oxycodone/Acetaminophen (Oxycodone /Acetaminophen 5-325mg Tab) 1 tab PO Q6H PRN PRN Reason: Pain, Moderate (4-6) Last Admin: 08/23/20 08:46 Dose: 1 tab Documented by: Sodium Chloride (Sodium Chloride 0.9% 10 Ml Flush Syringe) 10 ml IV BID FEI Last Admin: 08/23/20 21:41 Dose: 10 ml Documented by: Sodium Chloride (Sodium Chloride 0.9% 10 Ml Flush Syringe) 10 ml IV PRN PRN PRN Reason: LINE FLUSH Physical Examination Vital signs: Vital Signs Temp Pulse Resp BP Pulse Ox 97.3 F L 84 18 206/99 99 08/22/20 12:12 08/22/20 12:12 08/22/20 12:12 08/22/20 12:12 08/22/20 12:12 Results - Laboratory Findings CBC and BMP: 08/24/20 07:16 08/24/20 07:16 PT/INR, D-dimer PT 12.9 Sec. (12.2-14.9) 08/23/20 19:30 INR 0.99 (0.87-1.13) 08/23/20 19:30 Abnormal lab findings: Abnormal Labs 08/22/20 08/22/20 08/22/20 12:51 12:51 12:51 RBC 5.16 H RDW 16.2 H Lymph % (Auto) [place] % (Auto) Lymph # (Auto) Seg Neutrophils % PT 11.5 L INR 0.86 L APTT 24.1 L Fibrinogen Heparin Anti-Xa Level Sodium BUN 21 H Creatinine Glucose Alkaline Phosphatase 135 H Total Creatine Kinase 08/22/20 08/22/20 08/23/20 12:51 16:37 04:25 RBC RDW 16.2 H Lymph % (Auto) [place] % (Auto) Lymph # (Auto) Seg Neutrophils % PT INR APTT Fibrinogen Heparin Anti-Xa Level < 0.10 L Sodium BUN Creatinine Glucose Alkaline Phosphatase Total Creatine Kinase 30 L 08/23/20 08/23/20 08/23/20 04:25 07:21 19:30 RBC RDW 16.0 H Lymph % (Auto) [place] % (Auto) Lymph # (Auto) Seg Neutrophils % 75.9 H PT INR APTT Fibrinogen Heparin Anti-Xa Level 0.14 L Sodium BUN Creatinine Glucose 101 H Alkaline Phosphatase Total Creatine Kinase 08/23/20 08/23/20 08/24/20 19:30 19:30 00:35 RBC RDW 15.9 H Lymph % (Auto) [place] % (Auto) Lymph # (Auto) Seg Neutrophils % 75.3 H PT INR APTT 134.1 H* Fibrinogen Heparin Anti-Xa Level Sodium 135 L BUN Creatinine 0.7 L Glucose 128 H Alkaline Phosphatase Total Creatine Kinase 08/24/20 08/24/20 08/24/20 00:35 07:16 07:16 RBC RDW 15.8 H Lymph % (Auto) 11.0 L [place] % (Auto) 8.8 H Lymph # (Auto) 0.9 L Seg Neutrophils % 79.8 H PT INR APTT Fibrinogen Heparin Anti-Xa Level 0.10 L Sodium BUN 21 H Creatinine Glucose 114 H Alkaline Phosphatase Total Creatine Kinase 08/24/20 07:16 RBC RDW Lymph % (Auto) [place] % (Auto) Lymph # (Auto) Seg Neutrophils % PT INR APTT Fibrinogen 163 L Heparin Anti-Xa Level 0.10 L Sodium BUN Creatinine Glucose Alkaline Phosphatase Total Creatine Kinase
--- NOTE | 2020-08-24 13:13 | Progress Note ---
Assessment and Plan Patient will be brought down today to the [facility] for removal of thrombolytics catheter and any an additional intervention that may be necessary in an attempt to reperfuse his left lower leg. I the patient may ultimately require surgical bypass and likely at least a TMA. Subjective Date of service: 08/24/20 Principal diagnosis: Left leg ischemia Interval history: Patient with a history of peripheral vascular disease and likely acute on chron ic thrombus in his left leg. The patient overnight developed significantly altered mental status and agitation and was moving about the bed. He is currently in four-point restraints however, despite this the patient's leg remains bent. His leg to the forefoot is warm. The toes are blanched white consistent with ischemic changes. Unable to cooperate to determine his degree of mobility or sensation. Objective - Constitutional Vitals: Vital Signs - 12hr 08/24/20 08/24/20 08/24/20 01:11 01:21 01:30 Temperature Pulse Rate 92 H 89 88 Respiratory 17 13 15 Rate Blood Pressure 135/64 138/69 143/72 O2 Sat by Pulse 95 93 91 Oximetry 08/24/20 08/24/20 08/24/20 01:41 01:51 02:01 Temperature Pulse Rate 93 H 91 H 92 H Respiratory 17 13 14 Rate Blood Pressure 143/72 153/81 153/81 O2 Sat by Pulse 93 Oximetry 08/24/20 08/24/20 08/24/20 02:11 02:20 02:31 Temperature Pulse Rate 96 H 95 H 95 H Respiratory 22 13 11 L Rate Blood Pressure 152/70 152/70 137/85 O2 Sat by Pulse Oximetry 08/24/20 08/24/20 08/24/20 02:41 02:50 03:00 Temperature Pulse Rate 94 H 97 H 97 H Respiratory 15 13 23 Rate Blood Pressure 137/85 127/74 127/74 O2 Sat by Pulse 90 90 Oximetry 08/24/20 08/24/20 08/24/20 03:11 03:21 03:31 Temperature Pulse Rate 91 H 96 H Respiratory 19 18 Rate Blood Pressure 140/74 150/75 150/75 O2 Sat by Pulse 92 95 Oximetry 08/24/20 08/24/20 08/24/20 03:41 03:51 04:00 Temperature 98.5 F Pulse Rate 87 94 H 96 H Respiratory 14 14 12 Rate Blood Pressure 144/65 158/72 131/89 O2 Sat by Pulse 95 94 94 Oximetry 08/24/20 08/24/20 08/24/20 04:11 04:21 04:30 Temperature Pulse Rate 91 H 97 H 96 H Respiratory 12 13 10 L Rate Blood Pressure 144/65 144/57 133/81 O2 Sat by Pulse 95 91 Oximetry 08/24/20 08/24/20 08/24/20 04:41 04:51 05:01 Temperature Pulse Rate 90 90 85 Respiratory 11 L 12 13 Rate Blood Pressure 133/81 129/80 117/58 O2 Sat by Pulse 90 90 Oximetry 08/24/20 08/24/20 08/24/20 05:11 05:21 05:30 Temperature Pulse Rate 81 86 95 H Respiratory 13 15 12 Rate Blood Pressure 117/58 108/59 122/71 O2 Sat by Pulse 93 92 91 Oximetry 08/24/20 08/24/20 08/24/20 05:41 05:50 06:01 Temperature Pulse Rate 89 91 H 84 Respiratory 12 12 14 Rate Blood Pressure 122/71 122/71 123/55 O2 Sat by Pulse 90 95 Oximetry 08/24/20 08/24/20 08/24/20 06:11 06:21 06:30 Temperature Pulse Rate 87 88 88 Respiratory 15 10 L 14 Rate Blood Pressure 123/55 112/73 118/54 O2 Sat by Pulse 96 94 94 Oximetry 08/24/20 08/24/20 08/24/20 06:41 06:51 07:01 Temperature Pulse Rate 85 93 H 79 Respiratory 11 L 11 L 10 L Rate Blood Pressure 123/55 123/55 139/52 O2 Sat by Pulse 95 95 94 Oximetry 08/24/20 08/24/20 08/24/20 07:11 07:21 07:30 Temperature Pulse Rate 82 78 86 Respiratory 12 10 L 12 Rate Blood Pressure 139/52 141/57 131/56 O2 Sat by Pulse 97 97 97 Oximetry 08/24/20 08/24/20 08/24/20 07:41 07:51 08:00 Temperature 98.1 F Pulse Rate 75 82 Respiratory 10 L 9 L Rate Blood Pressure 131/56 97/54 O2 Sat by Pulse 97 96 95 Oximetry 08/24/20 08/24/20 08/24/20 08:01 08:11 08:21 Temperature Pulse Rate 71 75 69 Respiratory 10 L 9 L 9 L Rate Blood Pressure 106/49 106/49 118/46 O2 Sat by Pulse 95 96 98 Oximetry 08/24/20 08/24/20 08/24/20 08:30 08:41 08:51 Temperature Pulse Rate 80 77 94 H Respiratory 10 L 10 L 19 Rate Blood Pressure 120/60 120/60 129/57 O2 Sat by Pulse 96 99 99 Oximetry 08/24/20 08/24/20 08/24/20 09:00 09:11 09:21 Temperature Pulse Rate 80 77 73 Respiratory 10 L 12 10 L Rate Blood Pressure 132/54 132/54 134/58 O2 Sat by Pulse 96 97 96 Oximetry 08/24/20 08/24/20 08/24/20 09:31 09:41 09:51 Temperature Pulse Rate 76 78 82 Respiratory 11 L 10 L 11 L Rate Blood Pressure 99/54 99/54 115/65 O2 Sat by Pulse 96 98 98 Oximetry 08/24/20 08/24/20 08/24/20 10:00 10:11 10:21 Temperature Pulse Rate 81 81 77 Respiratory 12 13 10 L Rate Blood Pressure 139/68 139/68 133/64 O2 Sat by Pulse 97 98 98 Oximetry 08/24/20 08/24/20 08/24/20 10:30 10:41 10:51 Temperature Pulse Rate 84 73 79 Respiratory 12 11 L 14 Rate Blood Pressure 121/54 121/54 109/61 O2 Sat by Pulse 97 98 98 Oximetry 08/24/20 08/24/20 08/24/20 11:01 11:11 11:21 Temperature Pulse Rate 72 91 H 93 H Respiratory 12 12 12 Rate Blood Pressure 114/60 114/60 135/69 O2 Sat by Pulse 99 98 99 Oximetry 08/24/20 08/24/20 08/24/20 11:31 11:41 11:51 Temperature Pulse Rate 72 85 77 Respiratory 12 19 12 Rate Blood Pressure 143/65 143/65 143/63 O2 Sat by Pulse 99 100 98 Oximetry 08/24/20 12:00 Temperature 97.8 F Pulse Rate 70 Respiratory 12 Rate Blood Pressure 138/56 O2 Sat by Pulse 99 Oximetry General appearance: Present: mild distress - EENT ENT: hearing intact - Neck Neck: normal ROM - Respiratory Respiratory effort: normal Extremities: abnormal - Gastrointestinal General gastrointestinal: Present: deferred - Genitourinary Male genitourinary: deferred - Labs CBC & Chem 7: 08/24/20 07:16 08/24/20 07:16 Labs: Abnormal lab results 08/23/20 08/23/20 08/23/20 Range/Units 19:30 19:30 19:30 RDW 16.0 H (13.2-15.2) % Lymph % (Auto) (13.4-35.0) % [place] % (Auto) (0.0-7.3) % Lymph # (Auto) (1.2-5.4) K/mm3 Seg Neutrophils % 75.9 H (40.0-70.0) % APTT 134.1 H* (24.2-36.6) Sec. Fibrinogen (211-480) mg/dl Heparin Anti-Xa Level (0.3-0.7) U.I./ml Sodium 135 L (137-145) mmol/L BUN (9-20) mg/dL Creatinine 0.7 L (0.8-1.3) mg/dL Glucose 128 H (75-100) mg/dL 08/24/20 08/24/20 08/24/20 Range/Units 00:35 00:35 07:16 RDW 15.9 H 15.8 H (13.2-15.2) % Lymph % (Auto) 11.0 L (13.4-35.0) % [place] % (Auto) 8.8 H (0.0-7.3) % Lymph # (Auto) 0.9 L (1.2-5.4) K/mm3 Seg Neutrophils % 75.3 H 79.8 H (40.0-70.0) % APTT (24.2-36.6) Sec. Fibrinogen (211-480) mg/dl Heparin Anti-Xa Level 0.10 L (0.3-0.7) U.I./ml Sodium (137-145) mmol/L BUN (9-20) mg/dL Creatinine (0.8-1.3) mg/dL Glucose (75-100) mg/dL 08/24/20 08/24/20 Range/Units 07:16 07:16 RDW (13.2-15.2) % Lymph % (Auto) (13.4-35.0) % [place] % (Auto) (0.0-7.3) % Lymph # (Auto) (1.2-5.4) K/mm3 Seg Neutrophils % (40.0-70.0) % APTT (24.2-36.6) Sec. Fibrinogen 163 L (211-480) mg/dl Heparin Anti-Xa Level 0.10 L (0.3-0.7) U.I./ml Sodium (137-145) mmol/L BUN 21 H (9-20) mg/dL Creatinine (0.8-1.3) mg/dL Glucose 114 H (75-100) mg/dL Medications & Allergies - Medications Allergies/Adverse Reactions: Allergies No Known Allergies Allergy (Verified 08/22/20 15:04) Home Medications: Home Medications Medication Instructions Recorded Confirmed Last Taken Type Cyclobenzaprine HCl [Flexeril 5 MG 5 mg PO TID PRN #20 tab 02/02/15 Unknown Rx TAB] Ibuprofen [Motrin 800 MG tab] 800 mg PO Q8HR PRN #20 tablet 02/02/15 Unknown Rx Active Medications: Generic Name Dose Route Start Last Admin Trade Name Freq PRN Reason Stop Dose Admin Acetaminophen 650 mg 08/22/20 15:01 Acetaminophen 325 Mg Tab PO Q4H PRN Pain MILD(1-3)/Fever >100.5/LIRIANO Hydrocodone Bitart/Acetaminophen 2 each 08/23/20 19:33 Hydrocodone/Acetaminophen 5-325 Mg Tab PO Q6H PRN Pain, Moderate (4-6) Haloperidol Lactate 10 mg 08/23/20 21:19 08/24/20 04:05 Haloperidol Lactate 10 Mg/5 Ml Oral Liqd PO 10 mg Q3H PRN Administration Agitation Hydromorphone HCl 1 mg 08/24/20 03:22 08/24/20 06:02 Hydromorphone 1 Mg/1 Ml Inj IV 1 mg Q1H PRN Administration Pain , Severe (7-10) Alteplase, Recombinant 20 mg/ 500 mls @ 25 mls/hr 08/23/20 19:42 08/24/20 07:25 Sodium Chloride EKOSDLUMEN 08/24/20 15:41 Not Given DIRECT STA Heparin Sodium/Sodium Chloride 25,000 unit in 500 mls @ 10 mls/hr 08/23/20 20:00 Heparin/ 0.45% Nacl-25,000 Unit/500 Ml SHEATH DIRECT FEI Protocol 500 UNITS/HR Sodium Chloride 1,000 mls @ 30 mls/hr 08/23/20 19:45 Nacl 0.9% 1000 Ml IV DIRECT FEI Sodium Chloride 1,000 mls @ 30 mls/hr 08/23/20 19:45 Nacl 0.9% 1000 Ml SHEATH DIRECT FEI Sodium Chloride 1,000 mls @ 35 mls/hr 08/23/20 19:45 Nacl 0.9% 1000 Ml EKOSCLUMEN DIRECT FEI Sodium Chloride 1,000 mls @ 75 mls/hr 08/23/20 20:16 08/23/20 21:40 Nacl 0.9% 1000 Ml IV 75 mls/hr DIRECT FEI Administration Dexmedetomidine HCl 400 mcg/ 104 mls @ 3.64 mls/hr 08/24/20 14:00 Sodium Chloride IV TITRATE [facility] Protocol 0.2 MCG/KG/HR Morphine Sulfate 4 mg 08/23/20 19:39 Morphine 4 Mg/1 Ml Inj IV Q4H PRN Pain , Severe (7-10) Ondansetron HCl 4 mg 08/23/20 19:33 08/23/20 23:45 Ondansetron 4 Mg/2 Ml Inj IV 4 mg Q8H PRN Administration Nausea And Vomiting Oxycodone/Acetaminophen 1 tab 08/22/20 15:01 08/23/20 08:46 Oxycodone /Acetaminophen 5-325mg Tab PO 1 tab Q6H PRN Administration Pain, Moderate (4-6) Sodium Chloride 10 ml 08/22/20 22:00 08/24/20 10:44 Sodium Chloride 0.9% 10 Ml Flush Syringe IV 10 ml BID FEI Administration Sodium Chloride 10 ml 08/22/20 15:01 Sodium Chloride 0.9% 10 Ml Flush Syringe IV PRN PRN LINE FLUSH
--- NOTE | 2020-08-24 13:39 | Consultation ---
PULMONARY CRITICAL CARE CONSULT NOTE CONSULTING PHYSICIAN: Dr. Mitchell. REASON FOR CONSULTATION: Acute limb ischemia, status post undergoing thrombolytic therapy. CHIEF COMPLAINT AND HISTORY OF PRESENT ILLNESS: The patient is a 60-year-old male with past medical history significant amongst other things for nicotine dependence, medication noncompliance and I am told a history of alcohol abuse, who came to the Emergency Room complaining of pain in his left leg. Reportedly, the patient had been going on for about a month. It was otherwise acutely worsening symptoms on the day before presentation. It was 6/10 at that time, worsened with weightbearing. He was brought into the Emergency Room by private physician. Vascular Surgery was consulted. He was started on therapeutic anticoagulation and was admitted to the telemetry floor for further management. Yesterday, late in the day I believe, he did undergo a revascularization procedure. He had angioplasty and atherectomy and stenting of the left SFA and popliteal arteries. He also had angioplasty and stent of the left tibioperoneal trunk. He also had angioplasty of the left posterior tibial artery and then thrombolysis of the left lower extremity with 135/50 EKOS thrombolysis catheter. Post-procedure, he was brought into the Intensive Care Unit for continued thrombolytic therapy and close monitoring. When I stopped by to see him, he was resting in bed, agitated actually, a little element of delirium, much better than the night before I was told by the nurse. He was actually asking to be sedated because he could not stay still. He did deny chest pain, but his history was otherwise sketchy. He is also described as having a history of tobacco abuse. The above is as much of the history of presentation as I have. PAST MEDICAL HISTORY: Significant for alcohol abuse, hypertension, nicotine dependence, degenerative joint disease, hypertension. PAST SURGICAL HISTORY: He has had C-spine surgery. MEDICATIONS: He was on at the time I stopped by to see him were reviewed. According to the medication record, Tylenol 650 mg p.o. q. 4 hours p.r.n. mild pain or fevers, [place] 5/325 two tablets p.o. q. 6 hours p.r.n. moderate pain, thrombolytic therapy was being administered through the EKOS catheter. He was getting recombinant alteplase. Haldol 10 mg p.o. q. 3 hours p.r.n., heparin drip was also going 500 units per hour and adjusted per 10a levels. Dilaudid 1 mg IV q. 1 hours p.r.n. severe pain, morphine sulfate 4 mg IV q. 4 hours p.r.n. severe pain, Zofran 4 mg IV q. 8 hours p.r.n. nausea and vomiting. ALLERGIES: No known drug allergies. DIET: A well-built gentleman, acute weight loss or gain history is unknown. FAMILY AND SOCIAL HISTORY: Apparently lived in the community. He has a history of alcohol. He has a history of tobacco abuse and there is a family history of hypertension according to the records. REVIEW OF SYSTEMS: Difficult to obtain secondary to the delirium; however, since he has been here, no gross hematochezia or melena, no gross hematuria, no hematemesis, no hemoptysis. No witnessed seizures. Review of systems otherwise unobtainable or as in body of history as above. PHYSICAL EXAMINATION: VITAL SIGNS: On examination at presentation and since he has been afebrile, temperature was 97.3 degrees Fahrenheit, pulse of 84, respiratory rate of 18, blood pressure was 206/99, O2 sats were 99%, inspired oxygen concentration at that time were not recorded. When I stopped by to see him, his O2 sats were 98% and that was on 3 liters nasal cannula. GENERAL: He is a well-built elderly male; normocephalic, atraumatic; resting in bed with intermittent agitation and mildly increased respiratory effort at rest. HEAD, EYES, EARS, NOSE AND THROAT: Anicteric. No conjunctival erythema. Oropharynx was moist. No gross jugular venous distention, no thyromegaly. NECK: Grossly, there were no palpable lymph nodes in the supraclavicular or submandibular lymph node chains. LUNGS: Auscultation of both lung fernandez unremarkable. He had good bilateral air movement, no wheezing. HEART: Heart sounds 1 and 2 are heard, regular rate and rhythm at the time of my evaluation without overt rubs or murmurs. ABDOMEN: Soft, full, bowel sounds are positive, nontender, no palpable hepatosplenomegaly. EXTREMITIES: Without overt digital clubbing or cyanosis. He had trace pedal edema to the left lower extremity. He had erythema from the knees down to the shins. He was warm to touch and pedal pulses, dorsalis pedis was palpable, but diminished. The right lower extremity had EKOS catheter I believe in it. NEUROLOGIC: Pupils are equal, round, about 4 mm, reactive to light. Extraocular muscle movements were intact. He moves all 4 extremities spontaneously. SKIN: Normal turgor, otherwise in the areas examined without overt cellulitis or rash. Please see the wound care nurse's notes for full description of the skin. PSYCHIATRIC: Mood and affect were somewhat anxious. He had an element of delirium. His judgment and insight were inappropriate and not intact. LABORATORY DATA: From my review are as follows: Admission white cell count 9400, hemoglobin 13.9, hematocrit 42.8, platelet count was 313. INR was 0.86. Serum sodium was 142, potassium 4.5, chloride 104, bicarbonate 29, BUN 21, creatinine 0.8, and glucose of 100. Liver function tests are within normal limits. Fibrinogen within normal limits. His hemoglobin is 12.7 this morning. Most recent test. No microbiology studies. He had Dopplers of both lower extremities. There was no DVT in the left lower extremity seen. Arterial Dopplers of the left lower extremity showed complete occlusion of the left SFA and popliteal arteries. ASSESSMENT: 1. Acute limb ischemia. 2. Likely alcohol withdrawal with delirium tremens. 3. Peripheral vascular disease. 4. Accelerated hypertension. 4. Nicotine dependence. 5. History of alcohol abuse/dependence. PLAN: We will defer to the vascular team for continuation of the EKOS catheter system and thrombolysis. I will be starting him on GI prophylaxis, especially with him on thrombolytic therapy and full anticoagulation. Oxygen is going to be weaned to keep sats greater than or equal to about 92%. Aspiration precautions will be maintained. I will get a chest x-ray in light of his hypoxemia to make sure we are not missing any intrathoracic pathology. I will also begin a Precedex drip to help control the delirium/agitation. A 12-lead EKG will be ordered if one has not already been done to evaluate the QT interval. Flu and pneumonia vaccination will be addressed per protocol. Once he is more appropriate, counseling will be given for tobacco abstinence as well as alcohol abstinence. Thank you very much for the consult. We will follow along and make further recommendations as picture progresses/becomes clearer. JOB# [id number] AKIRA/SAMANTHA REEVES
[2020-08-24 13:42] LABS: Basophils % (Auto) 0.3 % (0.0-1.8); Eosinophils % (Auto) 0.3 % (0.0-4.3); Hemoglobin 12.6 gm/dl (11.8-15.2); Lymphocytes # (Auto) 1.2 K/mm3 (1.2-5.4); Lymphocytes % (Auto) 15.5 % (13.4-35.0); Mean Corpuscular HGB Conc 33 % (32-34); Mean Corpuscular Volume 86 fl (84-94); Monocytes # (Auto) 0.7 K/mm3 (0.0-0.8); Monocytes % (Auto) 9.7 % (0.0-7.3); Platelet Count 178 K/mm3 (140-440); Red Blood Count 4.44 M/mm3 (3.65-5.03); Red Cell Distribution Width 16.4 % (13.2-15.2)
[2020-08-24] MEDS: SODIUM CHLORIDE 0.9% 1000 ML 1,000 ML IV SCH (13:53)
[2020-08-24 13:55] LABS: Fibrinogen 184 mg/dl (211-480)
[2020-08-24] MEDS: FAMOTIDINE 20 MG/2 ML INJ IV SCH ×2 (13:57→21:49)
[2020-08-24] MEDS ORDERED: MIDAZOLAM 2 MG/2 ML INJ ONE (14:43)
[2020-08-24] MEDS ORDERED: HEPARIN 10,000 UNITS/10 ML VIAL ONE (14:43)
[2020-08-24] MEDS ORDERED: fentaNYL 100 MCG/2 ML INJ ONE (14:43)
[2020-08-24] MEDS ORDERED: HEPARIN/NS 5000 UNIT/500ML 500 ML IR ONE (14:43)
[2020-08-24] MEDS ORDERED: LIDOCAINE (2%) 20 MG/1 ML VIAL 20 ML MDV INFILTRATI ONE (14:44)
--- NOTE | 2020-08-24 15:34 | Operative Report ---
Operative Report Operative Report: Exam: Left lower extremity angiography, thrombolytics catheter removal Clinical indication: Patient with a history of acute on chronic thrombus in his left leg with acute on chronic limb ischemia of his left leg approximately 1 month duration Date: 08/24/2020 Procedure: Following an explanation of the risks, benefits and alternatives; written informed consent was obtained. The patient was brought to the angiographic suite and placed in supine position on the examination table. Initial fluoroscopic evaluation demonstrated appropriate positioning of the patient's indwelling sheath from his right common femoral artery into the left common femoral artery and appropriate positioning of the thrombolytics catheter which extends into the posterior tibial artery distally on the left. The patient's right groin and indwelling sheath were prepped and draped in the usual sterile fashion. 1% lidocaine was used for anesthesia at the sheath insertion site. The infusion wire was removed. Contrast was injected through the indwelling thrombolytics catheter. The catheter is in the proximal posterior tibial artery. There is brisk flow throughout the entire length of the posterior tibial artery with no significant thrombus. There is prompt opacification of the foot and digital vessels with retrograde filling of a pedal arch. The catheter was withdrawn proximally and additional angiography performed with the catheter in the distal SFA and common iliac artery. The remaining visualized vessels are widely patent. No significant residual thrombus is identified. The catheter was then removed. A guidewire was inserted and the sheath proximal lysed. Contrast was injected which demonstrates a distal abdominal aorta and bilateral common iliac arteries which are widely patent. The sheath was then removed and hemostasis achieved in the right groin using an Angio-Seal arterial closure device. A compression dressing was also applied. The patient tolerated the procedure well. There were no immediate postprocedure complications. A minimal amount of conscious sedation was performed under the guidance of radiologic nursing. Continuous cardiopulmonary monitoring was utilized. Impression: 1) Left lower extremity angiography with catheter placed in the posterior tibial artery, SFA and common iliac artery demonstrating no significant residual thrombus with patent inline flow to the foot. The posterior tibial artery is widely patent. 2) Removal of EKOS thrombolytics catheter.
[2020-08-24] MEDS: HEPARIN/ 0.45% NACL DRIP 25,000 UNIT/500 ML BAG IV SCH (16:00)
[2020-08-24] MEDS ORDERED: HEPARIN 10,000 UNITS/10 ML VIAL IV PRN (16:28)
--- NOTE | 2020-08-24 17:44 | Cat Scan Report ---
CT head/brain wo con INDICATION: ams. TECHNIQUE: Routine CT head. All CT scans at this location are performed using CT dose reduction for A HESHAM by means of automated exposure control. COMPARISON: None. FINDINGS: Intracranial: Kaplan-white matter differentiation is maintained. No intracranial hemorrhage. No extra a xial collection. No hydrocephalus. No herniation. Sinuses: Mild mucosal thickening in the left maxillary sinus.. Orbits: Globes are intact. Calvarium: No acute fracture. IMPRESSION: 1. No acute intracranial abnormality. Signer Name: Ricki Babcock MD Signed: 08/24/2020 5:39 PM Workstation Name: [id number]
[2020-08-24] MEDS: oxyCODONE /ACETAMINOPHEN 5-325MG TAB PO PRN (21:53)
[2020-08-24 22:13] LABS: Hemoglobin 12.6 gm/dl (11.8-15.2)
[2020-08-24 22:39] LABS: INR 1.09 (0.87-1.13)
[2020-08-24 22:40] LABS: Partial Thromboplastin Time 29.8 Sec. (24.2-36.6)
[2020-08-25] MEDS: HYDROmorphone 1 MG/1 ML INJ IV PRN (02:15)
--- NOTE | 2020-08-25 09:43 | Progress Note ---
Assessment and Plan Assessment and plan: Critical limb ischemia/left femoral artery occlusion. Arterial Doppler demonstrates occlusion of the left proximal superficial femoral artery to popliteal artery. Peripheral vascular disease. As above. Accelerated hypertension. Continue antihypertensive medications. Tobacco abuse. Patient has a 74-30-lyfa-year history of smoking 08/23/2020. CTA revealed advanced narrowing of the proximal left superficial femoral artery with a majority of the left SFA completely occluded along with the left popliteal artery and tibioperoneal trunk. The left calf vessels are reconstituted and there appears to be three-vessel runoff to the left ankle. The left anterior tibial artery is diminutive with probable high-grade stenosis throughout. Continue heparin drip per vascular recommendations. Continue IV fluid hydration. Patient for Cdl B Driver today for revascularization. Patient understands that without revascularization he will have limb loss given his symptoms with gangrene. 08/24/2020. Dr. Hay attempted revascularization but ultimately had to perform catheter directed thrombolysis of the left lower extremity on 08/23/2020. Continue medications for pain control. Continue heparin drip per vascular surgery. 08/25/2020. Patient with left lower extremity angiography and thrombolytics catheter removal. Transfer to telemetry if okay with vascular surgery. History Interval history: No new issues overnight. Hospitalist Physical - Constitutional Vitals: Temp Pulse Resp BP Pulse Ox 97.8 F 77 18 154/66 92 08/25/20 04:00 08/25/20 08:31 08/25/20 08:31 08/25/20 08:31 08/25/20 08:31 General appearance: Present: mild distress - EENT Eyes: Present: PERRL, EOM intact ENT: hearing intact, clear oral mucosa, dentition normal - Neck Neck: Present: supple, normal ROM - Respiratory Respiratory effort: normal Respiratory: bilateral: CTA - Cardiovascular Rhythm: regular Heart Sounds: Present: S1 & S2. Absent: gallop, rub - Extremities Extremities: no ischemia, No edema, Full ROM - Abdominal General gastrointestinal: soft, non-tender, non-distended, normal bowel sounds - Integumentary Integumentary: Present: clear, warm, dry - Neurologic Neurologic: CNII-XII intact, moves all extremities Results - Labs CBC & Chem 7: 08/24/20 21:49 08/24/20 07:16 Labs: Laboratory Last Values WBC 7.7 K/mm3 (4.5-11.0) 08/24/20 12:56 RBC 4.44 M/mm3 (3.65-5.03) 08/24/20 12:56 Hgb 12.6 gm/dl (11.8-15.2) 08/24/20 21:49 Hct 38.0 % (35.5-45.6) 08/24/20 21:49 MCV 86 fl (84-94) 08/24/20 12:56 MCH 29 pg (28-32) 08/24/20 12:56 MCHC 33 % (32-34) 08/24/20 12:56 RDW 16.4 % (13.2-15.2) H 08/24/20 12:56 Plt Count 171 K/mm3 (140-440) 08/24/20 21:49 Lymph % (Auto) 15.5 % (13.4-35.0) 08/24/20 12:56 [place] % (Auto) 9.7 % (0.0-7.3) H 08/24/20 12:56 Eos % (Auto) 0.3 % (0.0-4.3) 08/24/20 12:56 Baso % (Auto) 0.3 % (0.0-1.8) 08/24/20 12:56 Lymph # (Auto) 1.2 K/mm3 (1.2-5.4) 08/24/20 12:56 [place] # (Auto) 0.7 K/mm3 (0.0-0.8) 08/24/20 12:56 Eos # (Auto) 0.0 K/mm3 (0.0-0.4) 08/24/20 12:56 Baso # (Auto) 0.0 K/mm3 (0.0-0.1) 08/24/20 12:56 Seg Neutrophils % 74.2 % (40.0-70.0) H 08/24/20 12:56 Seg Neutrophils # 5.7 K/mm3 (1.8-7.7) 08/24/20 12:56 PT 13.9 Sec. (12.2-14.9) 08/24/20 21:49 INR 1.09 (0.87-1.13) 08/24/20 21:49 APTT 29.8 Sec. (24.2-36.6) 08/24/20 21:49 Fibrinogen 184 mg/dl (211-480) L 08/24/20 12:56 Heparin Anti-Xa Level < 0.10 U.I./ml (0.3-0.7) L 08/25/20 06:02 Sodium 140 mmol/L (137-145) 08/24/20 07:16 Potassium 4.5 mmol/L (3.6-5.0) D 08/24/20 07:16 Chloride 105.0 mmol/L (98-107) 08/24/20 07:16 Carbon Dioxide 26 mmol/L (22-30) 08/24/20 07:16 Anion Gap 14 mmol/L 08/24/20 07:16 BUN 21 mg/dL (9-20) H 08/24/20 07:16 Creatinine 1.1 mg/dL (0.8-1.3) D 08/24/20 07:16 Estimated GFR > 60 ml/min 08/24/20 07:16 BUN/Creatinine Ratio 19 % 08/24/20 07:16 Glucose 114 mg/dL (75-100) H 08/24/20 07:16 Calcium 8.8 mg/dL (8.4-10.2) 08/24/20 07:16 Total Bilirubin 0.20 mg/dL (0.1-1.2) 08/22/20 12:51 AST 11 units/L (5-40) 08/22/20 12:51 ALT 16 units/L (7-56) 08/22/20 12:51 Alkaline Phosphatase 135 units/L (35-129) H 08/22/20 12:51 Total Creatine Kinase 30 units/L (55-170) L 08/22/20 12:51 Total Protein 7.6 g/dL (6.3-8.2) 08/22/20 12:51 Albumin 4.0 g/dL (3.9-5) 08/22/20 12:51 Albumin/Globulin Ratio 1.1 % 08/22/20 12:51 Keyes/IV: Voiding Method Urinal Active Medications - Current Medications Current Medications: Generic Name Dose Route Start Last Admin Trade Name Freq PRN Reason Stop Dose Admin Acetaminophen 650 mg 08/22/20 15:01 Acetaminophen 325 Mg Tab PO Q4H PRN Pain MILD(1-3)/Fever >100.5/LIRIANO Hydrocodone Bitart/Acetaminophen 2 each 08/23/20 19:33 Hydrocodone/Acetaminophen 5-325 Mg Tab PO Q6H PRN Pain, Moderate (4-6) Famotidine 20 mg 08/24/20 14:00 08/24/20 21:49 Famotidine 20 Mg/2 Ml Inj IV 20 mg BID FEI Administration Haloperidol Lactate 10 mg 08/23/20 21:19 08/24/20 04:05 Haloperidol Lactate 10 Mg/5 Ml Oral Liqd PO 10 mg Q3H PRN Administration Agitation Heparin Sodium (Porcine) 2,800 unit 08/24/20 16:28 Heparin 10,000 Units/10 Ml Vial 40 unit/kg (2800 unit) IV Q6H PRN Anti-Xa Assay < 0.1 units/ml Hydromorphone HCl 1 mg 08/24/20 03:22 08/25/20 02:15 Hydromorphone 1 Mg/1 Ml Inj IV 1 mg Q1H PRN Administration Pain , Severe (7-10) Dexmedetomidine HCl 400 mcg/ 104 mls @ 3.64 mls/hr 08/24/20 14:00 08/24/20 17:03 Sodium Chloride IV 0 mcg/kg/hr TITRATE FEI 0 mls/hr Titration Protocol 0.2 MCG/KG/HR Heparin Sodium/Sodium Chloride 25,000 unit in 500 mls @ 21 mls/hr 08/24/20 16:00 08/25/20 06:51 Heparin/ 0.45% Nacl-25,000 Unit/500 Ml IV 1,350 units/hr TITR FEI 27 mls/hr Titration Protocol 1,050 UNITS/HR Morphine Sulfate 4 mg 08/23/20 19:39 Morphine 4 Mg/1 Ml Inj IV Q4H PRN Pain , Severe (7-10) Ondansetron HCl 4 mg 08/23/20 19:33 08/23/20 23:45 Ondansetron 4 Mg/2 Ml Inj IV 4 mg Q8H PRN Administration Nausea And Vomiting Oxycodone/Acetaminophen 1 tab 08/22/20 15:01 08/24/20 21:53 Oxycodone /Acetaminophen 5-325mg Tab PO 1 tab Q6H PRN Administration Pain, Moderate (4-6) Sodium Chloride 10 ml 08/22/20 22:00 08/24/20 21:50 Sodium Chloride 0.9% 10 Ml Flush Syringe IV 10 ml BID FEI Administration Sodium Chloride 10 ml 08/22/20 15:01 Sodium Chloride 0.9% 10 Ml Flush Syringe IV PRN PRN LINE FLUSH
[2020-08-25] MEDS: HEPARIN/ 0.45% NACL DRIP 25,000 UNIT/500 ML BAG IV SCH (10:04)
[2020-08-25] MEDS: FAMOTIDINE 20 MG/2 ML INJ IV SCH (10:05)
--- NOTE | 2020-08-25 16:21 | Progress Note ---
Assessment and Plan The patient is post procedure day #2 from his initial endovascular procedure and post procedure day #2 from removal of his EKOS catheter. He is significantly improved from his admission with a palpable pulse, improved motor and sensation, and significantly improved perfusion to his toes. I will convert him to oral anticoagulation with Eliquis as well as started him on dual antiplatelet therapy. I will also start him on Protonix for gastric ulcer protection. Once he is able to ambulate and tolerate pain with oral narcotics he will be able to be discharged home from a vascular surgery standpoint. He will need to follow- up with me in the office in 2 weeks. He will require close follow-up to maintain patency of his repair. I have also discussed smoking cessation was the patient expressed understanding and agrees with however he understands that this will be quite difficult. Subjective Date of service: 08/25/20 Principal diagnosis: Left leg ischemia Interval history: The patient is without complaints at this time. He states that he has no pain in his left foot. He denies any pain in his left leg. He appears to be much clearer mentally than he has been since his admission. Objective - Constitutional Vitals: Vital Signs - 12hr 08/25/20 08/25/20 08/25/20 04:21 04:30 04:41 Temperature Pulse Rate 67 65 80 Pulse Rate [ From Monitor] Respiratory 12 16 14 Rate Blood Pressure 144/57 135/58 135/58 O2 Sat by Pulse 99 91 97 Oximetry 08/25/20 08/25/20 08/25/20 04:51 05:01 05:11 Temperature Pulse Rate 71 88 93 H Pulse Rate [ From Monitor] Respiratory 15 13 17 Rate Blood Pressure 135/58 165/70 165/70 O2 Sat by Pulse 93 96 86 Oximetry 08/25/20 08/25/20 08/25/20 05:21 05:31 05:41 Temperature Pulse Rate 78 68 77 Pulse Rate [ From Monitor] Respiratory 17 17 17 Rate Blood Pressure 165/70 158/57 158/57 O2 Sat by Pulse 97 97 93 Oximetry 08/25/20 08/25/20 08/25/20 05:51 06:00 06:11 Temperature Pulse Rate 81 80 68 Pulse Rate [ From Monitor] Respiratory 16 18 13 Rate Blood Pressure 158/57 157/67 157/67 O2 Sat by Pulse 95 94 97 Oximetry 08/25/20 08/25/2021 06:21 06:30 06:41 Temperature Pulse Rate 67 69 71 Pulse Rate [ From Monitor] Respiratory 17 16 13 Rate Blood Pressure 157/67 143/65 143/65 O2 Sat by Pulse 100 96 99 Oximetry 08/25/20 08/25/20 08/25/20 06:51 07:00 07:11 Temperature Pulse Rate 78 67 69 Pulse Rate [ From Monitor] Respiratory 13 14 18 Rate Blood Pressure 143/65 137/65 137/65 O2 Sat by Pulse 97 97 99 Oximetry 08/25/20 08/25/20 08/25/20 07:21 07:30 07:41 Temperature Pulse Rate 65 78 69 Pulse Rate [ From Monitor] Respiratory 19 18 17 Rate Blood Pressure 137/65 156/61 142/56 O2 Sat by Pulse 94 99 94 Oximetry 08/25/20 08/25/20 08/25/20 07:51 08:00 08:01 Temperature 98.7 F Pulse Rate 67 64 Pulse Rate [ 74 From Monitor] Respiratory 17 18 17 Rate Blood Pressure 142/56 144/60 O2 Sat by Pulse 97 96 97 Oximetry 08/25/20 08/25/20 08/25/20 08:11 08:21 08:31 Temperature Pulse Rate 68 64 77 Pulse Rate [ From Monitor] Respiratory 17 14 18 Rate Blood Pressure 144/60 144/60 154/66 O2 Sat by Pulse 96 95 92 Oximetry 08/25/20 08/25/20 08/25/20 08:41 08:51 09:01 Temperature Pulse Rate 81 102 H 97 H Pulse Rate [ From Monitor] Respiratory 18 25 H 17 Rate Blood Pressure 154/66 154/66 173/78 O2 Sat by Pulse 96 94 92 Oximetry 08/25/20 08/25/20 08/25/20 09:11 09:21 09:30 Temperature Pulse Rate 99 H 97 H 94 H Pulse Rate [ From Monitor] Respiratory 14 19 17 Rate Blood Pressure 173/78 173/78 136/53 O2 Sat by Pulse 94 95 92 Oximetry 08/25/20 08/25/20 08/25/20 09:41 09:51 10:00 Temperature Pulse Rate 91 H 80 83 Pulse Rate [ From Monitor] Respiratory 22 17 19 Rate Blood Pressure 136/53 136/53 131/57 O2 Sat by Pulse 93 96 94 Oximetry 08/25/20 08/25/20 08/25/20 10:11 10:21 10:30 Temperature Pulse Rate 78 73 71 Pulse Rate [ From Monitor] Respiratory 18 16 16 Rate Blood Pressure 131/57 131/57 154/49 O2 Sat by Pulse 93 96 96 Oximetry 08/25/20 08/25/20 08/25/20 10:41 10:51 11:00 Temperature Pulse Rate 79 73 80 Pulse Rate [ From Monitor] Respiratory 20 18 21 Rate Blood Pressure 154/49 154/49 149/69 O2 Sat by Pulse 97 96 95 Oximetry 08/25/20 08/25/20 08/25/20 11:11 11:21 11:31 Temperature Pulse Rate 66 79 80 Pulse Rate [ From Monitor] Respiratory 13 18 15 Rate Blood Pressure 154/49 154/49 150/55 O2 Sat by Pulse 100 96 95 Oximetry 08/25/20 08/25/20 08/25/20 11:41 11:51 12:00 Temperature 98.2 F Pulse Rate 79 92 H 78 Pulse Rate [ 74 From Monitor] Respiratory 20 16 20 Rate Blood Pressure 150/55 150/55 133/60 O2 Sat by Pulse 96 97 97 Oximetry 08/25/20 08/25/20 08/25/20 12:11 12:21 12:31 Temperature Pulse Rate 81 87 87 Pulse Rate [ From Monitor] Respiratory 23 13 20 Rate Blood Pressure 133/60 133/60 156/83 O2 Sat by Pulse 98 96 96 Oximetry 08/25/20 08/25/20 08/25/20 12:41 12:51 13:01 Temperature Pulse Rate 83 85 86 Pulse Rate [ From Monitor] Respiratory 18 24 21 Rate Blood Pressure 156/83 156/83 142/118 O2 Sat by Pulse 98 98 97 Oximetry 08/25/20 08/25/20 08/25/20 13:11 13:21 13:30 Temperature Pulse Rate 80 87 78 Pulse Rate [ From Monitor] Respiratory 21 16 21 Rate Blood Pressure 142/118 142/118 150/66 O2 Sat by Pulse 96 97 93 Oximetry 08/25/20 08/25/20 08/25/20 13:41 13:51 14:01 Temperature Pulse Rate 73 81 108 H Pulse Rate [ From Monitor] Respiratory 18 21 27 H Rate Blood Pressure 150/66 150/66 152/98 O2 Sat by Pulse 97 97 97 Oximetry 08/25/20 08/25/20 08/25/20 14:10 14:20 14:31 Temperature Pulse Rate 78 84 67 Pulse Rate [ From Monitor] Respiratory 20 22 17 Rate Blood Pressure 154/49 152/98 126/50 O2 Sat by Pulse 94 93 Oximetry 08/25/20 08/25/20 08/25/20 14:41 14:51 15:00 Temperature Pulse Rate 85 77 80 Pulse Rate [ From Monitor] Respiratory 20 22 22 Rate Blood Pressure 152/98 152/98 141/60 O2 Sat by Pulse 96 96 96 Oximetry 08/25/20 08/25/20 08/25/20 15:11 15:21 15:30 Temperature Pulse Rate 74 78 80 Pulse Rate [ From Monitor] Respiratory 19 23 21 Rate Blood Pressure 141/60 141/60 126/59 O2 Sat by Pulse 96 97 95 Oximetry 08/25/20 08/25/20 08/25/20 15:41 15:51 16:00 Temperature Pulse Rate 82 76 79 Pulse Rate [ 74 From Monitor] Respiratory 22 21 20 Rate Blood Pressure 141/60 141/60 144/51 O2 Sat by Pulse 95 96 94 Oximetry 08/25/20 16:11 Temperature Pulse Rate 80 Pulse Rate [ From Monitor] Respiratory 17 Rate Blood Pressure 144/51 O2 Sat by Pulse 96 Oximetry General appearance: Present: no acute distress - Respiratory Respiratory effort: normal - Cardiovascular Rhythm: regular Extremities: no ischemia, pulses intact (Posterior tibial pulses are palpable bilaterally), normal temperature, normal color (The left foot including all 5 toes are hyperemic. There is less than 2-second capillary refill) - Musculoskeletal Musculoskeletal: other (The patient has motor function in all all toes of his left foot) - Neurologic Neurologic: other (The patient has sensation in the left toes however it is slightly diminished in the first toe) - Labs CBC & Chem 7: 08/24/20 21:49 08/24/20 07:16 Labs: Abnormal lab results 08/24/20 08/25/20 08/25/20 Range/Units 21:49 06:02 13:05 Heparin Anti-Xa Level < 0.10 L < 0.10 L 0.13 L (0.3-0.7) U.I./ml Medications & Allergies - Medications Allergies/Adverse Reactions: Allergies No Known Allergies Allergy (Verified 08/22/20 15:04) Home Medications: Home Medications Medication Instructions Recorded Confirmed Last Taken Type Cyclobenzaprine HCl [Flexeril 5 MG 5 mg PO TID PRN #20 tab 02/02/15 Unknown Rx TAB] Ibuprofen [Motrin 800 MG tab] 800 mg PO Q8HR PRN #20 tablet 02/02/15 Unknown Rx Active Medications: Generic Name Dose Route Start Last Admin Trade Name Freq PRN Reason Stop Dose Admin Acetaminophen 650 mg 08/22/20 15:01 Acetaminophen 325 Mg Tab PO Q4H PRN Pain MILD(1-3)/Fever >100.5/LIRIANO Hydrocodone Bitart/Acetaminophen 2 each 08/23/20 19:33 Hydrocodone/Acetaminophen 5-325 Mg Tab PO Q6H PRN Pain, Moderate (4-6) Famotidine 20 mg 08/24/20 14:00 08/25/20 10:05 Famotidine 20 Mg/2 Ml Inj IV 20 mg BID FEI Administration Haloperidol Lactate 10 mg 08/23/20 21:19 08/24/20 04:05 Haloperidol Lactate 10 Mg/5 Ml Oral Liqd PO 10 mg Q3H PRN Administration Agitation Heparin Sodium (Porcine) 2,800 unit 08/24/20 16:28 Heparin 10,000 Units/10 Ml Vial 40 unit/kg (2800 unit) IV Q6H PRN Anti-Xa Assay < 0.1 units/ml Hydromorphone HCl 1 mg 08/24/20 03:22 08/25/20 02:15 Hydromorphone 1 Mg/1 Ml Inj IV 1 mg Q1H PRN Administration Pain , Severe (7-10) Dexmedetomidine HCl 400 mcg/ 104 mls @ 3.64 mls/hr 08/24/20 14:00 08/24/20 17:03 Sodium Chloride IV 0 mcg/kg/hr TITRATE FEI 0 mls/hr Titration Protocol 0.2 MCG/KG/HR Heparin Sodium/Sodium Chloride 25,000 unit in 500 mls @ 21 mls/hr 08/24/20 16:00 08/25/20 15:24 Heparin/ 0.45% Nacl-25,000 Unit/500 Ml IV 1,500 units/hr TITR FEI 30 mls/hr Titration Protocol 1,050 UNITS/HR Morphine Sulfate 4 mg 08/23/20 19:39 Morphine 4 Mg/1 Ml Inj IV Q4H PRN Pain , Severe (7-10) Ondansetron HCl 4 mg 08/23/20 19:33 08/23/20 23:45 Ondansetron 4 Mg/2 Ml Inj IV 4 mg Q8H PRN Administration Nausea And Vomiting Oxycodone/Acetaminophen 1 tab 08/22/20 15:01 08/24/20 21:53 Oxycodone /Acetaminophen 5-325mg Tab PO 1 tab Q6H PRN Administration Pain, Moderate (4-6) Sodium Chloride 10 ml 08/22/20 22:00 08/25/20 10:05 Sodium Chloride 0.9% 10 Ml Flush Syringe IV 10 ml BID FEI Administration Sodium Chloride 10 ml 08/22/20 15:01 Sodium Chloride 0.9% 10 Ml Flush Syringe IV PRN PRN LINE FLUSH
[2020-08-25] MEDS ORDERED: CLOPIDOGREL 300 MG TAB PO ONE (17:00)
[2020-08-25] MEDS: CILOSTAZOL 100 MG TAB PO SCH (21:18)
[2020-08-25] MEDS: APIXABAN 5 MG TAB PO SCH (21:19)
[2020-08-26] MEDS: PANTOPRAZOLE 40 MG TAB PO SCH (08:10)
[2020-08-26] MEDS: APIXABAN 5 MG TAB PO SCH ×2 (09:25→23:03)
[2020-08-26] MEDS: CLOPIDOGREL 75 MG TAB PO SCH (09:25)
[2020-08-26] MEDS: CILOSTAZOL 100 MG TAB PO SCH ×2 (09:25→23:03)
--- NOTE | 2020-08-26 10:32 | Progress Note ---
Assessment and Plan Assessment and plan: Critical limb ischemia/left femoral artery occlusion. Arterial Doppler demonstrates occlusion of the left proximal superficial femoral artery to popliteal artery. Peripheral vascular disease. As above. Accelerated hypertension. Continue antihypertensive medications. Tobacco abuse. Patient has a 56-05-dkyw-year history of smoking 08/23/2020. CTA revealed advanced narrowing of the proximal left superficial femoral artery with a majority of the left SFA completely occluded along with the left popliteal artery and tibioperoneal trunk. The left calf vessels are reconstituted and there appears to be three-vessel runoff to the left ankle. The left anterior tibial artery is diminutive with probable high-grade stenosis throughout. Continue heparin drip per vascular recommendations. Continue IV fluid hydration. Patient for Hand Alterations Seamstress today for revascularization. Patient understands that without revascularization he will have limb loss given his symptoms with gangrene. 08/24/2020. Dr. Hay attempted revascularization but ultimately had to perform catheter directed thrombolysis of the left lower extremity on 08/23/2020. Continue medications for pain control. Continue heparin drip per vascular surgery. 08/25/2020. Patient with left lower extremity angiography and thrombolytics catheter removal. Transfer to telemetry if okay with vascular surgery. 08/26/2020. S/p endovascular procedure--catheter directed thrombolysis of left lower extremity and removal of EKOS catheter. Continue Eliquis 5 mg p.o. twice daily, Pletal and Plavix per vascular surgery recommendations. Continue PPI for gastric ulcer prophylaxis. Vascular surgery reports once the patient is able to ambulate and tolerate pain with oral narcotics he will be able to be discharged home from a vascular surgery standpoint. PT evaluation History Interval history: No new issues overnight. Hospitalist Physical - Constitutional Vitals: Temp Pulse Resp BP Pulse Ox 98.4 F 75 16 149/68 93 08/26/20 08:00 08/26/20 09:00 08/26/20 09:00 08/26/20 09:00 08/26/20 09:00 General appearance: Present: no acute distress - EENT Eyes: Present: PERRL, EOM intact ENT: hearing intact, clear oral mucosa, dentition normal - Neck Neck: Present: supple, normal ROM - Respiratory Respiratory effort: normal Respiratory: bilateral: CTA - Cardiovascular Rhythm: regular Heart Sounds: Present: S1 & S2. Absent: gallop, rub - Extremities Extremities: no ischemia, No edema, Full ROM - Abdominal General gastrointestinal: soft, non-tender, non-distended, normal bowel sounds - Integumentary Integumentary: Present: clear, warm, dry - Neurologic Neurologic: CNII-XII intact, moves all extremities Results - Labs CBC & Chem 7: 08/24/20 21:49 08/24/20 07:16 Labs: Laboratory Last Values WBC 7.7 K/mm3 (4.5-11.0) 08/24/20 12:56 RBC 4.44 M/mm3 (3.65-5.03) 08/24/20 12:56 Hgb 12.6 gm/dl (11.8-15.2) 08/24/20 21:49 Hct 38.0 % (35.5-45.6) 08/24/20 21:49 MCV 86 fl (84-94) 08/24/20 12:56 MCH 29 pg (28-32) 08/24/20 12:56 MCHC 33 % (32-34) 08/24/20 12:56 RDW 16.4 % (13.2-15.2) H 08/24/20 12:56 Plt Count 171 K/mm3 (140-440) 08/24/20 21:49 Lymph % (Auto) 15.5 % (13.4-35.0) 08/24/20 12:56 [place] % (Auto) 9.7 % (0.0-7.3) H 08/24/20 12:56 Eos % (Auto) 0.3 % (0.0-4.3) 08/24/20 12:56 Baso % (Auto) 0.3 % (0.0-1.8) 08/24/20 12:56 Lymph # (Auto) 1.2 K/mm3 (1.2-5.4) 08/24/20 12:56 [place] # (Auto) 0.7 K/mm3 (0.0-0.8) 08/24/20 12:56 Eos # (Auto) 0.0 K/mm3 (0.0-0.4) 08/24/20 12:56 Baso # (Auto) 0.0 K/mm3 (0.0-0.1) 08/24/20 12:56 Seg Neutrophils % 74.2 % (40.0-70.0) H 08/24/20 12:56 Seg Neutrophils # 5.7 K/mm3 (1.8-7.7) 08/24/20 12:56 PT 13.9 Sec. (12.2-14.9) 08/24/20 21:49 INR 1.09 (0.87-1.13) 08/24/20 21:49 APTT 29.8 Sec. (24.2-36.6) 08/24/20 21:49 Fibrinogen 184 mg/dl (211-480) L 08/24/20 12:56 Heparin Anti-Xa Level 0.22 U.I./ml (0.3-0.7) L 08/25/20 19:59 Sodium 140 mmol/L (137-145) 08/24/20 07:16 Potassium 4.5 mmol/L (3.6-5.0) D 08/24/20 07:16 Chloride 105.0 mmol/L (98-107) 08/24/20 07:16 Carbon Dioxide 26 mmol/L (22-30) 08/24/20 07:16 Anion Gap 14 mmol/L 08/24/20 07:16 BUN 21 mg/dL (9-20) H 08/24/20 07:16 Creatinine 1.1 mg/dL (0.8-1.3) D 08/24/20 07:16 Estimated GFR > 60 ml/min 08/24/20 07:16 BUN/Creatinine Ratio 19 % 08/24/20 07:16 Glucose 114 mg/dL (75-100) H 08/24/20 07:16 Calcium 8.8 mg/dL (8.4-10.2) 08/24/20 07:16 Total Bilirubin 0.20 mg/dL (0.1-1.2) 08/22/20 12:51 AST 11 units/L (5-40) 08/22/20 12:51 ALT 16 units/L (7-56) 08/22/20 12:51 Alkaline Phosphatase 135 units/L (35-129) H 08/22/20 12:51 Total Creatine Kinase 30 units/L (55-170) L 08/22/20 12:51 Total Protein 7.6 g/dL (6.3-8.2) 08/22/20 12:51 Albumin 4.0 g/dL (3.9-5) 08/22/20 12:51 Albumin/Globulin Ratio 1.1 % 08/22/20 12:51 Keyes/IV: Voiding Method Condom Catheter Active Medications - Current Medications Current Medications: Generic Name Dose Route Start Last Admin Trade Name Freq PRN Reason Stop Dose Admin Acetaminophen 650 mg 08/22/20 15:01 Acetaminophen 325 Mg Tab PO Q4H PRN Pain MILD(1-3)/Fever >100.5/LIRIANO Hydrocodone Bitart/Acetaminophen 2 each 08/23/20 19:33 08/25/20 19:49 Hydrocodone/Acetaminophen 5-325 Mg Tab PO 2 each Q6H PRN Administration Pain, Moderate (4-6) Apixaban 5 mg 08/25/20 22:00 08/26/20 09:25 Apixaban 5 Mg Tab PO 5 mg Q12HR FEI Administration Protocol Cilostazol 100 mg 08/25/20 22:00 08/26/20 09:25 Cilostazol 100 Mg Tab PO 100 mg BID FEI Administration Clopidogrel Bisulfate 75 mg 08/26/20 10:00 08/26/20 09:25 Clopidogrel 75 Mg Tab PO 75 mg QDAY FEI Administration Haloperidol Lactate 10 mg 08/23/20 21:19 08/24/20 04:05 Haloperidol Lactate 10 Mg/5 Ml Oral Liqd PO 10 mg Q3H PRN Administration Agitation Hydromorphone HCl 1 mg 08/24/20 03:22 08/25/20 02:15 Hydromorphone 1 Mg/1 Ml Inj IV 1 mg Q1H PRN Administration Pain , Severe (7-10) Dexmedetomidine HCl 400 mcg/ 104 mls @ 3.64 mls/hr 08/24/20 14:00 08/24/20 17:03 Sodium Chloride IV 0 mcg/kg/hr TITRATE FEI 0 mls/hr Titration Protocol 0.2 MCG/KG/HR Morphine Sulfate 4 mg 08/23/20 19:39 Morphine 4 Mg/1 Ml Inj IV Q4H PRN Pain , Severe (7-10) Ondansetron HCl 4 mg 08/23/20 19:33 08/23/20 23:45 Ondansetron 4 Mg/2 Ml Inj IV 4 mg Q8H PRN Administration Nausea And Vomiting Oxycodone/Acetaminophen 1 tab 08/22/20 15:01 02/18/21 21:53 Oxycodone /Acetaminophen 5-325mg Tab PO 1 tab Q6H PRN Administration Pain, Moderate (4-6) Pantoprazole Sodium 40 mg 08/26/20 07:30 08/26/20 08:10 Pantoprazole 40 Mg Tab PO 40 mg QDAC FEI Administration Sodium Chloride 10 ml 08/22/20 22:00 08/26/20 09:25 Sodium Chloride 0.9% 10 Ml Flush Syringe IV 10 ml BID FEI Administration Sodium Chloride 10 ml 08/22/20 15:01 Sodium Chloride 0.9% 10 Ml Flush Syringe IV PRN PRN LINE FLUSH
--- NOTE | 2020-08-26 12:29 | Progress Note ---
Assessment and Plan Acute limb ischemia. Likely alcohol withdrawal with delirium tremens. Peripheral vascular disease. Accelerated hypertension. Nicotine dependence. History of alcohol abuse/dependence - prn supplemental oxygen to keep O2 sats > 90% - prn bronchodilators (BRIANNA) with pulm hygiene per RT - anticoagulation per vascular team recommendations - prn analgesia per pain score - continue to avoid nephrotoxins, renally dose all medications - continue mobility protocols to prevent pressure ulcers - PT/OT as tolerated - Wound care per RN/WCT - continue accuchecks with glycemic control per SSI for target blood glucose < 180 mg/dL - Smoking cessation strongly counseled at the bedside - home oxygen evaluation at discharge - GI & VTE prophylaxis - Flu & pneumovax per protocol - continue other care per attending / other consultants ... re-evaluate in am & prn Subjective Date of service: 08/25/20 Principal diagnosis: Acute limb ischemia; DT's; PVD; Accelerated hypertension; Nicotine dependen Interval history: LATE ENTRY NOTE FOR DOS 08/25/2020 Patient is seen today for: Acute limb ischemia; Likely alcohol withdrawal with delirium tremens; Peripheral vascular disease; Accelerated hypertension; Nicotine dependence; History of alcohol abuse/dependence Seen and examined at bedside; 24hour events reviewed; nursing and respiratory care staff consulted; no adverse overnight events reported to me; resting in bed; more coherent; denies leg pain; No N/V/F/C/chest pains or palpitations Objective Vital Signs - 12hr 08/26/20 08/26/20 08/26/20 00:30 01:00 01:31 Temperature Pulse Rate 73 65 95 H Pulse Rate [ From Monitor] Respiratory 14 11 L 23 Rate Blood Pressure 143/75 158/70 158/70 O2 Sat by Pulse 93 94 96 Oximetry 08/26/20 08/26/20 08/26/20 02:00 02:30 03:01 Temperature Pulse Rate 81 74 70 Pulse Rate [ From Monitor] Respiratory 13 13 16 Rate Blood Pressure 166/76 131/65 155/63 O2 Sat by Pulse 98 92 93 Oximetry 08/26/20 08/26/20 08/26/20 03:30 03:48 04:00 Temperature 98.4 F Pulse Rate 81 67 Pulse Rate [ From Monitor] Respiratory 14 14 Rate Blood Pressure 148/73 133/61 O2 Sat by Pulse 96 96 Oximetry 08/26/20 08/26/20 08/26/20 04:30 05:00 05:01 Temperature Pulse Rate 97 H 92 H 107 H Pulse Rate [ From Monitor] Respiratory 10 L 16 Rate Blood Pressure 155/89 116/86 O2 Sat by Pulse 95 Oximetry 08/26/20 08/26/20 08/26/20 05:31 06:01 06:30 Temperature Pulse Rate 71 90 87 Pulse Rate [ From Monitor] Respiratory 16 13 13 Rate Blood Pressure 135/64 129/65 135/66 O2 Sat by Pulse Oximetry 08/26/20 08/26/20 08/26/20 07:01 07:30 08:00 Temperature 98.4 F Pulse Rate 111 H 94 H 113 H Pulse Rate [ 74 From Monitor] Respiratory 24 11 L 14 Rate Blood Pressure 135/66 147/71 139/64 O2 Sat by Pulse 94 91 Oximetry 08/26/20 08/26/20 08/26/20 08:30 09:00 09:31 Temperature Pulse Rate 89 75 94 H Pulse Rate [ From Monitor] Respiratory 18 16 15 Rate Blood Pressure 149/64 149/68 172/61 O2 Sat by Pulse 91 93 96 Oximetry 08/26/20 08/26/20 08/26/20 10:01 10:31 11:00 Temperature Pulse Rate 92 H 92 H 88 Pulse Rate [ From Monitor] Respiratory 16 18 16 Rate Blood Pressure 118/50 134/78 101/52 O2 Sat by Pulse 95 93 95 Oximetry 08/26/20 08/26/20 11:30 12:00 Temperature 98.4 F Pulse Rate 79 113 H Pulse Rate [ 74 From Monitor] Respiratory 19 16 Rate Blood Pressure 139/72 139/76 O2 Sat by Pulse 97 93 Oximetry Constitutional: no acute distress, other (elderly male with mildly increased respiratory effort at rest) Eyes: non-icteric ENT: oropharynx moist Neck: supple, no lymphadenopathy Effort: mildly labored Ascultation: Bilateral: clear, diminished breath sounds Percussion: Bilateral: not dull Cardiovascular: regular rate and rhythm Gastrointestinal: normoactive bowel sounds, soft, non-tender, non-distended Integumentary: erythema, other (redness to LLext) Extremities: no cyanosis, pink and warm, no ischemia or petechiae Neurologic: non-focal exam, pupils equal and round, CN II-XII normal, motor strength normal and Psychiatric: mood appropriate, affect normal CBC and BMP: 08/24/20 21:49 08/24/20 07:16 ABG, PT/INR, D-dimer: PT/INR, D-dimer PT 13.9 Sec. (12.2-14.9) 08/24/20 21:49 INR 1.09 (0.87-1.13) 08/24/20 21:49 Abnormal lab findings: Abnormal Labs 08/22/20 08/22/20 08/22/20 12:51 12:51 12:51 RBC 5.16 H RDW 16.2 H Lymph % (Auto) [place] % (Auto) Lymph # (Auto) Seg Neutrophils % PT 11.5 L INR 0.86 L APTT 24.1 L Fibrinogen Heparin Anti-Xa Level Sodium BUN 21 H Creatinine Glucose Alkaline Phosphatase 135 H Total Creatine Kinase 08/22/20 08/22/20 08/23/20 12:51 16:37 04:25 RBC RDW 16.2 H Lymph % (Auto) [place] % (Auto) Lymph # (Auto) Seg Neutrophils % PT INR APTT Fibrinogen Heparin Anti-Xa Level < 0.10 L Sodium BUN Creatinine Glucose Alkaline Phosphatase Total Creatine Kinase 30 L 08/23/20 08/23/20 08/23/20 04:25 07:21 19:30 RBC RDW 16.0 H Lymph % (Auto) [place] % (Auto) Lymph # (Auto) Seg Neutrophils % 75.9 H PT INR APTT Fibrinogen Heparin Anti-Xa Level 0.14 L Sodium BUN Creatinine Glucose 101 H Alkaline Phosphatase Total Creatine Kinase 08/23/20 08/23/20 08/24/20 19:30 19:30 00:35 RBC RDW 15.9 H Lymph % (Auto) [place] % (Auto) Lymph # (Auto) Seg Neutrophils % 75.3 H PT INR APTT 134.1 H* Fibrinogen Heparin Anti-Xa Level Sodium 135 L BUN Creatinine 0.7 L Glucose 128 H Alkaline Phosphatase Total Creatine Kinase 08/24/20 08/24/20 08/24/20 00:35 07:16 07:16 RBC RDW 15.8 H Lymph % (Auto) 11.0 L [place] % (Auto) 8.8 H Lymph # (Auto) 0.9 L Seg Neutrophils % 79.8 H PT INR APTT Fibrinogen Heparin Anti-Xa Level 0.10 L Sodium BUN 21 H Creatinine Glucose 114 H Alkaline Phosphatase Total Creatine Kinase 08/24/20 08/24/20 08/24/20 07:16 12:56 12:56 RBC RDW 16.4 H Lymph % (Auto) [place] % (Auto) 9.7 H Lymph # (Auto) Seg Neutrophils % 74.2 H PT INR APTT Fibrinogen 163 L 184 L Heparin Anti-Xa Level 0.10 L < 0.10 L Sodium BUN Creatinine Glucose Alkaline Phosphatase Total Creatine Kinase 08/24/20 08/25/20 08/25/20 21:49 06:02 13:05 RBC RDW Lymph % (Auto) [place] % (Auto) Lymph # (Auto) Seg Neutrophils % PT INR APTT Fibrinogen Heparin Anti-Xa Level < 0.10 L < 0.10 L 0.13 L Sodium BUN Creatinine Glucose Alkaline Phosphatase Total Creatine Kinase 08/25/20 19:59 RBC RDW Lymph % (Auto) [place] % (Auto) Lymph # (Auto) Seg Neutrophils % PT INR APTT Fibrinogen Heparin Anti-Xa Level 0.22 L Sodium BUN Creatinine Glucose Alkaline Phosphatase Total Creatine Kinase Allied health notes reviewed: nursing
--- NOTE | 2020-08-26 14:06 | Progress Note ---
Assessment and Plan 60-year-old male ischemia of the left lower extremity status post endovascular revascularization with palpable left posterior tibial pulse. I discussed with him that his previous movement during thrombolysis placed him at high risk for mortality and morbidity/limb loss during thrombolysis., and he told me he moved because he was in pain. I explained to him that in the future, if this needs to happen again, he will need to not move or he will not be eligible for thrombolysis. Patient understands. The patient's mental status is quite confusing as he appears to be lucid and alert and oriented today, but appears that at times of stress, his memory is poor and he does not listen or respond well. I that at times of stress his memory is suboptimal secondary to previous chronic alcohol use. The patient can ambulate without leg pain. Did have some oozing from the ulcer sites when he ambulated. Applied gauze bandage and discussed with patient he needs to apply gauze bandage daily. Recommended against getting the area wet until healed. Explained that water will likely result in infection. Recommended application of tiny amounts of Betadine versus tiny amount of triple antibiotic to prevent the area from getting infected. Explained the importance of patient's medication. Explained that without Eliquis, Plavix, cilostazol, and pantoprazole, patient is at high risk for morbidity and limb loss. Explained the importance of follow-up with Dr. Hay. Will need home health at least temporarily to assist with bandaging the left wound. This may not be necessary if patient can do this himself. Subjective Date of service: 08/26/20 Principal diagnosis: Left leg ischemia Interval history: Doing well with palpable left posterior tibial pulse. Has palpable right pedal pulses. Has some minor motor dysfunction of the second through fifth toe which predated his revascularization. No compartment syndrome. Minor sensory defect of the toes. This also predated his revascularization. No rest pain. Has some appropriate pain at his focal ulcer sites. Oozing noted at the ulcer sites which is good. Objective - Constitutional Vitals: Vital Signs - 12hr 08/26/20 08/26/20 08/26/20 02:00 02:30 03:01 Temperature Pulse Rate 81 74 70 Pulse Rate [ From Monitor] Respiratory 13 13 16 Rate Blood Pressure 166/76 131/65 155/63 O2 Sat by Pulse 98 92 93 Oximetry 08/26/20 08/26/2008/26/21 03:30 03:48 04:00 Temperature 98.4 F Pulse Rate 81 67 Pulse Rate [ From Monitor] Respiratory 14 14 Rate Blood Pressure 148/73 133/61 O2 Sat by Pulse 96 96 Oximetry 08/26/20 08/26/20 08/26/20 04:30 05:00 05:01 Temperature Pulse Rate 97 H 92 H 107 H Pulse Rate [ From Monitor] Respiratory 10 L 16 Rate Blood Pressure 155/89 116/86 O2 Sat by Pulse 95 Oximetry 08/26/20 08/26/20 08/26/20 05:31 06:01 06:30 Temperature Pulse Rate 71 90 87 Pulse Rate [ From Monitor] Respiratory 16 13 13 Rate Blood Pressure 135/64 129/65 135/66 O2 Sat by Pulse Oximetry 08/26/20 08/26/20 08/26/20 07:01 07:30 08:00 Temperature 98.4 F Pulse Rate 111 H 94 H 113 H Pulse Rate [ 74 From Monitor] Respiratory 24 11 L 14 Rate Blood Pressure 135/66 147/71 139/64 O2 Sat by Pulse 94 91 Oximetry 08/26/20 08/26/20 08/26/20 08:30 09:00 09:31 Temperature Pulse Rate 89 75 94 H Pulse Rate [ From Monitor] Respiratory 18 16 15 Rate Blood Pressure 149/64 149/68 172/61 O2 Sat by Pulse 91 93 96 Oximetry 08/26/20 08/26/20 08/26/20 10:01 10:31 11:00 Temperature Pulse Rate 92 H 92 H 88 Pulse Rate [ From Monitor] Respiratory 16 18 16 Rate Blood Pressure 118/50 134/78 101/52 O2 Sat by Pulse 95 93 95 Oximetry 08/26/20 08/26/20 11:30 12:00 Temperature 98.4 F Pulse Rate 79 113 H Pulse Rate [ 74 From Monitor] Respiratory 19 16 Rate Blood Pressure 139/72 139/76 O2 Sat by Pulse 97 93 Oximetry General appearance: Present: mild distress (Pain at focal ulcer sites of his left heel and lateral foot.) - EENT Eyes: EOM intact ENT: hearing intact - Respiratory Respiratory effort: normal Extremities: pulses intact (Left posterior tibial, right pedal pulses, no hematoma, pseudo-, or dehiscence of right access puncture site), normal temperature, normal color - Gastrointestinal General gastrointestinal: Present: soft, non-tender - Psychiatric Psychiatric: appropriate mood/affect, cooperative - Labs CBC & Chem 7: 08/24/20 21:49 08/24/20 07:16 Labs: Abnormal lab results 08/25/20 Range/Units 19:59 Heparin Anti-Xa Level 0.22 L (0.3-0.7) U.I./ml Medications & Allergies - Medications Allergies/Adverse Reactions: Allergies No Known Allergies Allergy (Verified 08/22/20 15:04) Home Medications: Home Medications Medication Instructions Recorded Confirmed Last Taken Type Cyclobenzaprine HCl [Flexeril 5 MG 5 mg PO TID PRN #20 tab 02/02/15 Unknown Rx TAB] Ibuprofen [Motrin 800 MG tab] 800 mg PO Q8HR PRN #20 tablet 02/02/15 Unknown Rx Apixaban [Eliquis] 5 mg PO Q12HR #60 tablet 08/25/20 Unknown Rx Clopidogrel [Plavix] 75 mg PO QDAY #90 tablet 08/25/20 Unknown Rx Pantoprazole [Protonix] 40 mg PO QDAY #90 tablet 08/25/20 Unknown Rx cilostazoL [Pletal] 100 mg PO BID #180 tablet 08/25/20 Unknown Rx Active Medications: Generic Name Dose Route Start Last Admin Trade Name Freq PRN Reason Stop Dose Admin Acetaminophen 650 mg 08/22/20 15:01 Acetaminophen 325 Mg Tab PO Q4H PRN Pain MILD(1-3)/Fever >100.5/LIRIANO Hydrocodone Bitart/Acetaminophen 2 each 08/23/20 19:33 08/25/20 19:49 Hydrocodone/Acetaminophen 5-325 Mg Tab PO 2 each Q6H PRN Administration Pain, Moderate (4-6) Apixaban 5 mg 08/25/20 22:00 08/26/20 09:25 Apixaban 5 Mg Tab PO 5 mg Q12HR FEI Administration Protocol Cilostazol 100 mg 08/25/20 22:00 08/26/20 09:25 Cilostazol 100 Mg Tab PO 100 mg BID FEI Administration Clopidogrel Bisulfate 75 mg 08/26/20 10:00 08/26/20 09:25 Clopidogrel 75 Mg Tab PO 75 mg QDAY FEI Administration Haloperidol Lactate 10 mg 08/23/20 21:19 08/24/20 04:05 Haloperidol Lactate 10 Mg/5 Ml Oral Liqd PO 10 mg Q3H PRN Administration Agitation Hydromorphone HCl 1 mg 08/24/20 03:22 08/25/20 02:15 Hydromorphone 1 Mg/1 Ml Inj IV 1 mg Q1H PRN Administration Pain , Severe (7-10) Dexmedetomidine HCl 400 mcg/ 104 mls @ 3.64 mls/hr 08/24/20 14:00 08/24/20 17:03 Sodium Chloride IV 0 mcg/kg/hr TITRATE FEI 0 mls/hr Titration Protocol 0.2 MCG/KG/HR Morphine Sulfate 4 mg 08/23/20 19:39 Morphine 4 Mg/1 Ml Inj IV Q4H PRN Pain , Severe (7-10) Ondansetron HCl 4 mg 08/23/20 19:33 08/23/20 23:45 Ondansetron 4 Mg/2 Ml Inj IV 4 mg Q8H PRN Administration Nausea And Vomiting Oxycodone/Acetaminophen 1 tab 08/22/20 15:01 08/24/20 21:53 Oxycodone /Acetaminophen 5-325mg Tab PO 1 tab Q6H PRN Administration Pain, Moderate (4-6) Pantoprazole Sodium 40 mg 08/26/20 07:30 08/26/20 08:10 Pantoprazole 40 Mg Tab PO 40 mg QDAC FEI Administration Sodium Chloride 10 ml 08/22/20 22:00 08/26/20 09:25 Sodium Chloride 0.9% 10 Ml Flush Syringe IV 10 ml BID FEI Administration Sodium Chloride 10 ml 08/22/20 15:01 Sodium Chloride 0.9% 10 Ml Flush Syringe IV PRN PRN LINE FLUSH
--- NOTE | 2020-08-26 14:39 | Progress Note ---
Assessment and Plan Acute limb ischemia. Likely alcohol withdrawal with delirium tremens. Peripheral vascular disease. Accelerated hypertension. Nicotine dependence. History of alcohol abuse/dependence - prn supplemental oxygen to keep O2 sats > 90% - prn bronchodilators (BRIANNA) with pulm hygiene per RT - anticoagulation per vascular team recommendations - prn analgesia per pain score - continue to avoid nephrotoxins, renally dose all medications - continue mobility protocols to prevent pressure ulcers - PT/OT as tolerated - Wound care per RN/WCT - continue accuchecks with glycemic control per SSI for target blood glucose < 180 mg/dL - Smoking cessation strongly counseled at the bedside - home oxygen evaluation at discharge - GI & VTE prophylaxis - Flu & pneumovax per protocol - continue other care per attending / other consultants ... re-evaluate in am & prn Subjective Date of service: 08/26/20 Principal diagnosis: Acute limb ischemia; DT's; PVD; Accelerated hypertension; Nicotine dependen Interval history: Patient is seen today for: Acute limb ischemia; Likely alcohol withdrawal with delirium tremens; Peripheral vascular disease; Accelerated hypertension; Nicotine dependence; History of alcohol abuse/dependence Seen and examined at bedside; 24hour events reviewed; nursing and respiratory care staff consulted; no adverse overnight events reported to me; resting in bed; more coherent; denies leg pain; Objective Vital Signs - 12hr 08/26/20 08/26/20 08/26/20 03:01 03:30 03:48 Temperature 98.4 F Pulse Rate 70 81 Pulse Rate [ From Monitor] Respiratory 16 14 Rate Blood Pressure 155/63 148/73 O2 Sat by Pulse 93 96 Oximetry 08/26/20 08/26/20 08/26/20 04:00 04:30 05:00 Temperature Pulse Rate 67 97 H 92 H Pulse Rate [ From Monitor] Respiratory 14 10 L Rate Blood Pressure 133/61 155/89 O2 Sat by Pulse 96 95 Oximetry 08/26/20 08/26/20 08/26/20 05:01 05:31 06:01 Temperature Pulse Rate 107 H 71 90 Pulse Rate [ From Monitor] Respiratory 16 16 13 Rate Blood Pressure 116/86 135/64 129/65 O2 Sat by Pulse Oximetry 08/26/20 08/26/20 08/26/20 06:30 07:01 07:30 Temperature Pulse Rate 87 111 H 94 H Pulse Rate [ From Monitor] Respiratory 13 24 11 L Rate Blood Pressure 135/66 135/66 147/71 O2 Sat by Pulse 94 Oximetry 08/26/20 08/26/20 08/26/20 08:00 08:30 09:00 Temperature 98.4 F Pulse Rate 113 H 89 75 Pulse Rate [ 74 From Monitor] Respiratory 14 18 16 Rate Blood Pressure 139/64 149/64 149/68 O2 Sat by Pulse 91 91 93 Oximetry 08/26/20 08/26/20 08/26/20 09:31 10:01 10:31 Temperature Pulse Rate 94 H 92 H 92 H Pulse Rate [ From Monitor] Respiratory 15 16 18 Rate Blood Pressure 172/61 118/50 134/78 O2 Sat by Pulse 96 95 93 Oximetry 08/26/20 08/26/20 08/26/20 11:00 11:30 12:00 Temperature 98.4 F Pulse Rate 88 79 113 H Pulse Rate [ 74 From Monitor] Respiratory 16 19 16 Rate Blood Pressure 101/52 139/72 139/76 O2 Sat by Pulse 95 97 93 Oximetry Constitutional: no acute distress, other (elderly male with mildly increased respiratory effort at rest) Eyes: non-icteric ENT: oropharynx moist Neck: supple, no lymphadenopathy Effort: mildly labored Ascultation: Bilateral: clear, diminished breath sounds Percussion: Bilateral: not dull Cardiovascular: regular rate and rhythm Gastrointestinal: normoactive bowel sounds, soft, non-tender, non-distended Integumentary: erythema, other (redness to LLext) Extremities: no cyanosis, pink and warm, no ischemia or petechiae Neurologic: non-focal exam, pupils equal and round, CN II-XII normal, motor strength normal and Psychiatric: mood appropriate, affect normal CBC and BMP: 08/24/20 21:49 08/24/20 07:16 ABG, PT/INR, D-dimer: PT/INR, D-dimer PT 13.9 Sec. (12.2-14.9) 08/24/20 21:49 INR 1.09 (0.87-1.13) 08/24/20 21:49 Abnormal lab findings: Abnormal Labs 08/22/20 08/22/20 08/22/20 12:51 12:51 12:51 RBC 5.16 H RDW 16.2 H Lymph % (Auto) [place] % (Auto) Lymph # (Auto) Seg Neutrophils % PT 11.5 L INR 0.86 L APTT 24.1 L Fibrinogen Heparin Anti-Xa Level Sodium BUN 21 H Creatinine Glucose Alkaline Phosphatase 135 H Total Creatine Kinase 08/22/20 08/22/20 08/23/20 12:51 16:37 04:25 RBC RDW 16.2 H Lymph % (Auto) [place] % (Auto) Lymph # (Auto) Seg Neutrophils % PT INR APTT Fibrinogen Heparin Anti-Xa Level < 0.10 L Sodium BUN Creatinine Glucose Alkaline Phosphatase Total Creatine Kinase 30 L 08/23/20 08/23/20 08/23/20 04:25 07:21 19:30 RBC RDW 16.0 H Lymph % (Auto) [place] % (Auto) Lymph # (Auto) Seg Neutrophils % 75.9 H PT INR APTT Fibrinogen Heparin Anti-Xa Level 0.14 L Sodium BUN Creatinine Glucose 101 H Alkaline Phosphatase Total Creatine Kinase 08/23/20 08/23/20 08/24/20 19:30 19:30 00:35 RBC RDW 15.9 H Lymph % (Auto) [place] % (Auto) Lymph # (Auto) Seg Neutrophils % 75.3 H PT INR APTT 134.1 H* Fibrinogen Heparin Anti-Xa Level Sodium 135 L BUN Creatinine 0.7 L Glucose 128 H Alkaline Phosphatase Total Creatine Kinase 08/24/20 08/24/20 08/24/20 00:35 07:16 07:16 RBC RDW 15.8 H Lymph % (Auto) 11.0 L [place] % (Auto) 8.8 H Lymph # (Auto) 0.9 L Seg Neutrophils % 79.8 H PT INR APTT Fibrinogen Heparin Anti-Xa Level 0.10 L Sodium BUN 21 H Creatinine Glucose 114 H Alkaline Phosphatase Total Creatine Kinase 08/24/20 08/24/20 08/24/20 07:16 12:56 12:56 RBC RDW 16.4 H Lymph % (Auto) [place] % (Auto) 9.7 H Lymph # (Auto) Seg Neutrophils % 74.2 H PT INR APTT Fibrinogen 163 L 184 L Heparin Anti-Xa Level 0.10 L < 0.10 L Sodium BUN Creatinine Glucose Alkaline Phosphatase Total Creatine Kinase 08/24/20 08/25/20 08/25/20 21:49 06:02 13:05 RBC RDW Lymph % (Auto) [place] % (Auto) Lymph # (Auto) Seg Neutrophils % PT INR APTT Fibrinogen Heparin Anti-Xa Level < 0.10 L < 0.10 L 0.13 L Sodium BUN Creatinine Glucose Alkaline Phosphatase Total Creatine Kinase 08/25/20 19:59 RBC RDW Lymph % (Auto) [place] % (Auto) Lymph # (Auto) Seg Neutrophils % PT INR APTT Fibrinogen Heparin Anti-Xa Level 0.22 L Sodium BUN Creatinine Glucose Alkaline Phosphatase Total Creatine Kinase Allied health notes reviewed: nursing
--- NOTE | 2020-08-27 09:09 | Progress Note ---
Assessment and Plan Assessment and plan: Critical limb ischemia/left femoral artery occlusion. Arterial Doppler demonstrates occlusion of the left proximal superficial femoral artery to popliteal artery. Peripheral vascular disease. As above. Accelerated hypertension. Continue antihypertensive medications. Tobacco abuse. Patient has a 85-96-cese-year history of smoking 08/23/2020. CTA revealed advanced narrowing of the proximal left superficial femoral artery with a majority of the left SFA completely occluded along with the left popliteal artery and tibioperoneal trunk. The left calf vessels are reconstituted and there appears to be three-vessel runoff to the left ankle. The left anterior tibial artery is diminutive with probable high-grade stenosis throughout. Continue heparin drip per vascular recommendations. Continue IV fluid hydration. Patient for Sales Enablement Lead today for revascularization. Patient understands that without revascularization he will have limb loss given his symptoms with gangrene. 08/24/2020. Dr. Hay attempted revascularization but ultimately had to perform catheter directed thrombolysis of the left lower extremity on 08/23/2020. Continue medications for pain control. Continue heparin drip per vascular surgery. 08/25/2020. Patient with left lower extremity angiography and thrombolytics catheter removal. Transfer to telemetry if okay with vascular surgery. 08/26/2020. S/p endovascular procedure--catheter directed thrombolysis of left lower extremity and removal of EKOS catheter. Continue Eliquis 5 mg p.o. twice daily, Pletal and Plavix per vascular surgery recommendations. Continue PPI for gastric ulcer prophylaxis. Vascular surgery reports once the patient is able to ambulate and tolerate pain with oral narcotics he will be able to be discharged home from a vascular surgery standpoint. PT evaluation. 08/27/2020. S/p endovascular procedure--catheter directed thrombolysis of left lower extremity and removal of EKOS catheter. Continue Eliquis 5 mg p.o. twice daily, Pletal and Plavix per vascular surgery recommendations. Continue PPI for gastric ulcer prophylaxis. Vascular surgery reports once the patient is able to ambulate and tolerate pain with oral narcotics he will be able to be discharged home from a vascular surgery standpoint. Await PT evaluation. History Interval history: No new issues overnight. Hospitalist Physical - Constitutional Vitals: Temp Pulse Resp BP Pulse Ox 98.6 F 87 16 154/68 95 08/27/20 08:36 08/27/20 07:33 08/27/20 07:33 08/27/20 07:33 08/27/20 07:33 General appearance: Present: mild distress (Pain at focal ulcer sites of his left heel and lateral foot.) - EENT Eyes: Present: PERRL, EOM intact ENT: hearing intact, clear oral mucosa, dentition normal - Neck Neck: Present: supple, normal ROM - Respiratory Respiratory effort: normal Respiratory: bilateral: CTA - Cardiovascular Rhythm: regular Heart Sounds: Present: S1 & S2. Absent: gallop, rub - Extremities Extremities: no ischemia, No edema, Full ROM - Abdominal General gastrointestinal: soft, non-tender, non-distended, normal bowel sounds - Integumentary Integumentary: Present: clear, warm, dry - Neurologic Neurologic: CNII-XII intact, moves all extremities Results - Labs CBC & Chem 7: 08/24/20 21:49 08/24/20 07:16 Labs: Laboratory Last Values WBC 7.7 K/mm3 (4.5-11.0) 08/24/20 12:56 RBC 4.44 M/mm3 (3.65-5.03) 08/24/20 12:56 Hgb 12.6 gm/dl (11.8-15.2) 08/24/20 21:49 Hct 38.0 % (35.5-45.6) 08/24/20 21:49 MCV 86 fl (84-94) 08/24/20 12:56 MCH 29 pg (28-32) 08/24/20 12:56 MCHC 33 % (32-34) 08/24/20 12:56 RDW 16.4 % (13.2-15.2) H 08/24/20 12:56 Plt Count 171 K/mm3 (140-440) 08/24/20 21:49 Lymph % (Auto) 15.5 % (13.4-35.0) 08/24/20 12:56 [place] % (Auto) 9.7 % (0.0-7.3) H 08/24/20 12:56 Eos % (Auto) 0.3 % (0.0-4.3) 08/24/20 12:56 Baso % (Auto) 0.3 % (0.0-1.8) 08/24/20 12:56 Lymph # (Auto) 1.2 K/mm3 (1.2-5.4) 08/24/20 12:56 [place] # (Auto) 0.7 K/mm3 (0.0-0.8) 08/24/20 12:56 Eos # (Auto) 0.0 K/mm3 (0.0-0.4) 08/24/20 12:56 Baso # (Auto) 0.0 K/mm3 (0.0-0.1) 08/24/20 12:56 Seg Neutrophils % 74.2 % (40.0-70.0) H 08/24/20 12:56 Seg Neutrophils # 5.7 K/mm3 (1.8-7.7) 08/24/20 12:56 PT 13.9 Sec. (12.2-14.9) 08/24/20 21:49 INR 1.09 (0.87-1.13) 08/24/20 21:49 APTT 29.8 Sec. (24.2-36.6) 08/24/20 21:49 Fibrinogen 184 mg/dl (211-480) L 08/24/20 12:56 Heparin Anti-Xa Level 0.22 U.I./ml (0.3-0.7) L 08/25/20 19:59 Sodium 140 mmol/L (137-145) 08/24/20 07:16 Potassium 4.5 mmol/L (3.6-5.0) D 08/24/20 07:16 Chloride 105.0 mmol/L (98-107) 08/24/20 07:16 Carbon Dioxide 26 mmol/L (22-30) 08/24/20 07:16 Anion Gap 14 mmol/L 08/24/20 07:16 BUN 21 mg/dL (9-20) H 08/24/20 07:16 Creatinine 1.1 mg/dL (0.8-1.3) D 08/24/20 07:16 Estimated GFR > 60 ml/min 08/24/20 07:16 BUN/Creatinine Ratio 19 % 08/24/20 07:16 Glucose 114 mg/dL (75-100) H 08/24/20 07:16 Calcium 8.8 mg/dL (8.4-10.2) 08/24/20 07:16 Total Bilirubin 0.20 mg/dL (0.1-1.2) 08/22/20 12:51 AST 11 units/L (5-40) 08/22/20 12:51 ALT 16 units/L (7-56) 08/22/20 12:51 Alkaline Phosphatase 135 units/L (35-129) H 08/22/20 12:51 Total Creatine Kinase 30 units/L (55-170) L 08/22/20 12:51 Total Protein 7.6 g/dL (6.3-8.2) 08/22/20 12:51 Albumin 4.0 g/dL (3.9-5) 08/22/20 12:51 Albumin/Globulin Ratio 1.1 % 08/22/20 12:51 [place]/IV: Voiding Method Urinal Active Medications - Current Medications Current Medications: Generic Name Dose Route Start Last Admin Trade Name Freq PRN Reason Stop Dose Admin Acetaminophen 650 mg 08/22/20 15:01 Acetaminophen 325 Mg Tab PO Q4H PRN Pain MILD(1-3)/Fever >100.5/LIRIANO Hydrocodone Bitart/Acetaminophen 2 each 08/23/20 19:33 08/25/20 19:49 Hydrocodone/Acetaminophen 5-325 Mg Tab PO 2 each Q6H PRN Administration Pain, Moderate (4-6) Apixaban 5 mg 08/25/20 22:00 08/26/20 23:03 Apixaban 5 Mg Tab PO 5 mg Q12HR FEI Administration Protocol Cilostazol 100 mg 08/25/20 22:00 08/26/20 23:03 Cilostazol 100 Mg Tab PO 100 mg BID FEI Administration Clopidogrel Bisulfate 75 mg 08/26/20 10:00 08/26/20 09:25 Clopidogrel 75 Mg Tab PO 75 mg QDAY FEI Administration Haloperidol Lactate 10 mg 08/23/20 21:19 08/24/20 04:05 Haloperidol Lactate 10 Mg/5 Ml Oral Liqd PO 10 mg Q3H PRN Administration Agitation Hydromorphone HCl 1 mg 08/24/20 03:22 08/25/20 02:15 Hydromorphone 1 Mg/1 Ml Inj IV 1 mg Q1H PRN Administration Pain , Severe (7-10) Dexmedetomidine HCl 400 mcg/ 104 mls @ 3.64 mls/hr 08/24/20 14:00 08/24/20 17:03 Sodium Chloride IV 0 mcg/kg/hr TITRATE FEI 0 mls/hr Titration Protocol 0.2 MCG/KG/HR Morphine Sulfate 4 mg 08/23/20 19:39 Morphine 4 Mg/1 Ml Inj IV Q4H PRN Pain , Severe (7-10) Ondansetron HCl 4 mg 08/23/20 19:33 08/23/20 23:45 Ondansetron 4 Mg/2 Ml Inj IV 4 mg Q8H PRN Administration Nausea And Vomiting Oxycodone/Acetaminophen 1 tab 08/22/20 15:01 08/24/20 21:53 Oxycodone /Acetaminophen 5-325mg Tab PO 1 tab Q6H PRN Administration Pain, Moderate (4-6) Pantoprazole Sodium 40 mg 08/26/20 07:30 08/26/20 08:10 Pantoprazole 40 Mg Tab PO 40 mg QDAC FEI Administration Sodium Chloride 10 ml 08/22/20 22:00 08/26/20 23:03 Sodium Chloride 0.9% 10 Ml Flush Syringe IV 10 ml BID FEI Administration Sodium Chloride 10 ml 08/22/20 15:01 Sodium Chloride 0.9% 10 Ml Flush Syringe IV PRN PRN LINE FLUSH
[2020-08-27] MEDS: PANTOPRAZOLE 40 MG TAB PO SCH (09:55)
[2020-08-27] MEDS: CILOSTAZOL 100 MG TAB PO SCH ×2 (09:55→22:37)
[2020-08-27] MEDS: APIXABAN 5 MG TAB PO SCH ×2 (09:55→22:37)
[2020-08-27] MEDS: CLOPIDOGREL 75 MG TAB PO SCH (09:56)
--- NOTE | 2020-08-27 12:21 | Progress Note ---
Assessment and Plan Acute limb ischemia. Likely alcohol withdrawal with delirium tremens. Peripheral vascular disease. Accelerated hypertension. Nicotine dependence. History of alcohol abuse/dependence - prn supplemental oxygen to keep O2 sats > 90% - prn bronchodilators (BRIANNA) with pulm hygiene per RT - anticoagulation per vascular team recommendations - prn analgesia per pain score - continue to avoid nephrotoxins, renally dose all medications - continue mobility protocols to prevent pressure ulcers - PT/OT as tolerated - Wound care per RN/WCT - continue accuchecks with glycemic control per SSI for target blood glucose < 180 mg/dL - Smoking cessation strongly counseled at the bedside - home oxygen evaluation at discharge - GI & VTE prophylaxis - Flu & pneumovax per protocol - continue other care per attending / other consultants ... re-evaluate in am & prn Subjective Date of service: 08/27/20 Principal diagnosis: Acute limb ischemia; DT's; PVD; Accelerated hypertension; Nicotine dependen Interval history: Patient is seen today for: Acute limb ischemia; Likely alcohol withdrawal with delirium tremens; Peripheral vascular disease; Accelerated hypertension; Nicotine dependence; History of alcohol abuse/dependence Seen and examined at bedside; 24hour events reviewed; nursing and respiratory care staff consulted; no adverse overnight events reported to me; resting in bed; more coherent; denies leg pain; Objective Vital Signs - 12hr 08/27/20 08/27/20 08/27/20 04:00 04:56 07:33 Temperature 98.8 F Pulse Rate 98 H 91 H 87 Respiratory 20 16 Rate Blood Pressure 116/51 154/68 O2 Sat by Pulse 92 95 Oximetry 08/27/20 08/27/20 08:36 11:23 Temperature 98.6 F 97.6 F Pulse Rate 82 Respiratory 16 Rate Blood Pressure 111/63 O2 Sat by Pulse 97 Oximetry Constitutional: no acute distress, other (elderly male with mildly increased respiratory effort at rest) Eyes: non-icteric ENT: oropharynx moist Neck: supple, no lymphadenopathy Effort: mildly labored Ascultation: Bilateral: clear, diminished breath sounds Percussion: Bilateral: not dull Cardiovascular: regular rate and rhythm Gastrointestinal: normoactive bowel sounds, soft, non-tender, non-distended Integumentary: erythema, other (redness to LLext) Extremities: no cyanosis, pink and warm, no ischemia or petechiae Neurologic: non-focal exam, pupils equal and round, CN II-XII normal, motor strength normal and Psychiatric: mood appropriate, affect normal CBC and BMP: 08/24/20 21:49 08/24/20 07:16 ABG, PT/INR, D-dimer: PT/INR, D-dimer PT 13.9 Sec. (12.2-14.9) 08/24/20 21:49 INR 1.09 (0.87-1.13) 08/24/20 21:49 Abnormal lab findings: Abnormal Labs 08/22/20 08/22/20 08/22/20 12:51 12:51 12:51 RBC 5.16 H RDW 16.2 H Lymph % (Auto) [place] % (Auto) Lymph # (Auto) Seg Neutrophils % PT 11.5 L INR 0.86 L APTT 24.1 L Fibrinogen Heparin Anti-Xa Level Sodium BUN 21 H Creatinine Glucose Alkaline Phosphatase 135 H Total Creatine Kinase 08/22/20 08/22/20 08/23/20 12:51 16:37 04:25 RBC RDW 16.2 H Lymph % (Auto) [place] % (Auto) Lymph # (Auto) Seg Neutrophils % PT INR APTT Fibrinogen Heparin Anti-Xa Level < 0.10 L Sodium BUN Creatinine Glucose Alkaline Phosphatase Total Creatine Kinase 30 L 08/23/20 08/23/20 08/23/20 04:25 07:21 19:30 RBC RDW 16.0 H Lymph % (Auto) [place] % (Auto) Lymph # (Auto) Seg Neutrophils % 75.9 H PT INR APTT Fibrinogen Heparin Anti-Xa Level 0.14 L Sodium BUN Creatinine Glucose 101 H Alkaline Phosphatase Total Creatine Kinase 08/23/20 08/23/20 08/24/20 19:30 19:30 00:35 RBC RDW 15.9 H Lymph % (Auto) [place] % (Auto) Lymph # (Auto) Seg Neutrophils % 75.3 H PT INR APTT 134.1 H* Fibrinogen Heparin Anti-Xa Level Sodium 135 L BUN Creatinine 0.7 L Glucose 128 H Alkaline Phosphatase Total Creatine Kinase 08/24/20 08/24/20 08/24/20 00:35 07:16 07:16 RBC RDW 15.8 H Lymph % (Auto) 11.0 L [place] % (Auto) 8.8 H Lymph # (Auto) 0.9 L Seg Neutrophils % 79.8 H PT INR APTT Fibrinogen Heparin Anti-Xa Level 0.10 L Sodium BUN 21 H Creatinine Glucose 114 H Alkaline Phosphatase Total Creatine Kinase 08/24/20 08/24/20 08/24/20 07:16 12:56 12:56 RBC RDW 16.4 H Lymph % (Auto) [place] % (Auto) 9.7 H Lymph # (Auto) Seg Neutrophils % 74.2 H PT INR APTT Fibrinogen 163 L 184 L Heparin Anti-Xa Level 0.10 L < 0.10 L Sodium BUN Creatinine Glucose Alkaline Phosphatase Total Creatine Kinase 08/24/20 08/25/20 08/25/20 21:49 06:02 13:05 RBC RDW Lymph % (Auto) [place] % (Auto) Lymph # (Auto) Seg Neutrophils % PT INR APTT Fibrinogen Heparin Anti-Xa Level < 0.10 L < 0.10 L 0.13 L Sodium BUN Creatinine Glucose Alkaline Phosphatase Total Creatine Kinase 08/25/20 19:59 RBC RDW Lymph % (Auto) [place] % (Auto) Lymph # (Auto) Seg Neutrophils % PT INR APTT Fibrinogen Heparin Anti-Xa Level 0.22 L Sodium BUN Creatinine Glucose Alkaline Phosphatase Total Creatine Kinase Allied health notes reviewed: nursing
[2020-08-27] MEDS: HALOPERIDOL LACTATE 10 MG/5 ML ORAL LIQD PO PRN (18:51)
[2020-08-27] MEDS: oxyCODONE /ACETAMINOPHEN 5-325MG TAB PO PRN (22:36)
--- NOTE | 2020-08-28 08:20 | Discharge Summary ---
Providers - Providers Date of Admission: 08/22/20 15:01 Date of discharge: 08/28/20 Attending physician: WESLY BRAY 08/22/20 14:14 Consult to Physician [CONS] Urgent Comment: Consulting Provider: KAMLESH MCKEON Physician Instructions: Reason For Exam: arterial occlusion 08/24/20 08:41 Consult to Physician [CONS] Routine Comment: Consulting Provider: AMAURI GEORGE Physician Instructions: Reason For Exam: critical care 08/25/20 16:24 Occupational Therapy Evaluate and Treat [CONS] Routine Comment: Reason For Exam: Debility Physical Therapy Evaluation and Treat [CONS] Routine Comment: Reason For Exam: Debility 08/28/20 06:53 Consult to Wound/ET Nurse [CONS] Routine Reason For Exam: wound eval Primary care physician: LANCE CREWMEMBER Hospitalization Reason for admission: PVD, limb ischemia Condition: Serious Hospital course: 60-year-old male with history of peripheral vascular disease, hypertension and tobacco abuse presented with admission diagnosis of critical limb ischemia and left femoral artery occlusion. Arterial Doppler demonstrates occlusion of the left proximal superficial femoral artery to popliteal artery. Hospital course: 08/23/2020. CTA revealed advanced narrowing of the proximal left superficial femoral artery with a majority of the left SFA completely occluded along with the left popliteal artery and tibioperoneal trunk. The left calf vessels are reconstituted and there appears to be three-vessel runoff to the left ankle. The left anterior tibial artery is diminutive with probable high-grade stenosis throughout. Continue heparin drip per vascular recommendations. Continue IV fluid hydration. Patient for Information Services Vice President today for revascularization. Patient understands that without revascularization he will have limb loss given his symptoms with gangrene. 08/24/2020. Dr. Smith attempted revascularization but ultimately had to perform catheter directed thrombolysis of the left lower extremity on 08/23/2020. Continue medications for pain control. Continue heparin drip per vascular surgery. 08/25/2020. Patient with left lower extremity angiography and thrombolytics catheter removal. Transfer to telemetry if okay with vascular surgery. 08/26/2020. S/p endovascular procedure--catheter directed thrombolysis of left lower extremity and removal of EKOS catheter. Continue Eliquis 5 mg p.o. twice daily, Pletal and Plavix per vascular surgery recommendations. Continue PPI for gastric ulcer prophylaxis. Vascular surgery reports once the patient is able to ambulate and tolerate pain with oral narcotics he will be able to be discharged home from a vascular surgery standpoint. PT evaluation. 08/27/2020. S/p endovascular procedure--catheter directed thrombolysis of left lower extremity and removal of EKOS catheter. Continue Eliquis 5 mg p.o. twice daily, Pletal and Plavix per vascular surgery recommendations. Continue PPI for gastric ulcer prophylaxis. Vascular surgery reports once the patient is able to ambulate and tolerate pain with oral narcotics he will be able to be discharged home from a vascular surgery standpoint. Await PT evaluation. Vascular surgery discussed with the that his previous movement during thrombolysis placed him at high risk for mortality and morbidity/limb loss during thrombolysis., and he told me he moved because he was in pain. Vascular surgery explained to him that in the future, if this needs to happen again, he will need to not move or he will not be eligible for thrombolysis. Patient understands. The patient can ambulate without leg pain and vascular surgery recommended against getting the wound wet until healed. Also, vascular surgery discussed plans of wound care. Patient will need home health assistance to bandaging of left wound. Also, vascular surgery explained importance of patient's medications and that without taking Eliquis, Plavix, cilostazol, and pantoprazole, patient is at high risk for morbidity and limb loss. Dedicated discharge time 35 minutes. Disposition: [id number] HOME UNDER HOME [facility] Time spent for discharge: 35 - Discharge Diagnoses (1) Critical lower limb ischemia Status: Acute (2) Accelerated hypertension Status: Acute (3) Femoral artery occlusion, left Status: Acute (4) Nicotine dependence Status: Acute Qualifiers: Nicotine product type: cigarettes Substance use status: in withdrawal Qualified Code(s): F17.213 - Nicotine dependence, cigarettes, with withdrawal (5) Peripheral artery disease Status: Acute Core Measure Documentation - Palliative Care Palliative Care/ Comfort Measures: Not Applicable - Core Measures Any of the following diagnoses?: none Exam - Constitutional Vitals: Temp Pulse Resp BP Pulse Ox 97.8 F 106 H 18 116/58 94 08/28/20 05:13 08/28/20 05:13 08/28/20 05:13 08/28/20 05:13 08/28/20 05:13 General appearance: Present: no acute distress, well-nourished - EENT Eyes: Present: PERRL ENT: hearing intact, clear oral mucosa - Neck Neck: Present: supple, normal ROM - Respiratory Respiratory effort: normal Respiratory: bilateral: CTA - Cardiovascular Heart Sounds: Present: S1 & S2. Absent: rub, click - Extremities Extremities: pulses symmetrical, No edema Peripheral Pulses: within normal limits - Abdominal General gastrointestinal: Present: soft, non-tender, non-distended, normal bowel sounds Male genitourinary: Present: normal - Integumentary Integumentary: Present: clear, warm, dry - Musculoskeletal Musculoskeletal: gait normal, strength equal bilaterally - Psychiatric Psychiatric: appropriate mood/affect, intact judgment & insight - Neurologic Neurologic: CNII-XII intact, moves all extremities Plan Activity: advance as tolerated Weight Bearing Status: Weight Bear as Tolerated Diet: low fat, low cholesterol, low salt Wound: per your surgeon's advice Special Instructions: home health RN Follow up with: PRIMARY CARE, [Primary Care Provider] - 3-5 Days TAWANA SMITH MD [Staff Physician] - 14 Days Prescriptions: Apixaban [Eliquis] 5 mg PO Q12HR #60 tablet Clopidogrel [Plavix] 75 mg PO QDAY #90 tablet cilostazoL [Pletal] 100 mg PO BID #180 tablet Pantoprazole [Protonix] 40 mg PO QDAY #90 tablet
[2020-08-28] MEDS: PANTOPRAZOLE 40 MG TAB PO SCH (08:35)
[2020-08-28] MEDS: HYDROmorphone 1 MG/1 ML INJ IV PRN ×4 (08:45→16:08)
[2020-08-28] MEDS: CILOSTAZOL 100 MG TAB PO SCH (09:27)
[2020-08-28] MEDS: APIXABAN 5 MG TAB PO SCH (09:27)
[2020-08-28] MEDS: CLOPIDOGREL 75 MG TAB PO SCH (09:27)
--- NOTE | 2020-08-28 11:20 | Progress Note ---
Assessment and Plan Patient resting on room air. O2 satuaration 98%. No complaint of chest pain, shortness of breath or cough. Patient has history of smoking. Smoking until he comes in to the hospital. Counseled to stop smoking.Recommend PFTs as out patient. Denies alcohol or drug abuse. 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 Management as per vascular surgery. - Patient Problems (1) Accelerated hypertension Status: Acute Plan to address problem: Management as per primary care. (2) Critical lower limb ischemia Status: Acute Plan to address problem: Management as per vascular surgery. (3) Femoral artery occlusion, left Status: Acute Plan to address problem: Management as per vascular surgery. (4) Nicotine dependence Status: Acute Qualifiers: Nicotine product type: cigarettes Substance use status: in withdrawal Qualified Code(s): F17.213 - Nicotine dependence, cigarettes, with withdrawal Plan to address problem: Counseled to stop smoking. Subjective Date of service: 08/28/20 Principal diagnosis: Acute limb ischemia; DT's; PVD; Accelerated hypertension; Nicotine dependen Interval history: Patient resting on room air. O2 satuaration 98%. No complaint of chest pain, shortness of breath or cough. Patient has history of smoking. Smoking until he comes in to the hospital. Counseled to stop smoking.Recommend PFTs as out patient. Denies alcohol or drug abuse. 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 Management as per vascular surgery. Objective Vital Signs - 12hr 08/28/20 08/28/20 08/28/20 00:00 00:18 04:00 Temperature 97.8 F Pulse Rate 91 H 91 H 91 H Respiratory 18 Rate Blood Pressure 112/93 Blood Pressure [Left] O2 Sat by Pulse 97 Oximetry 08/28/20 08/28/20 05:13 08:25 Temperature 97.8 F 98.1 F Pulse Rate 106 H 94 H Respiratory 18 16 Rate Blood Pressure 116/58 Blood Pressure 143/63 [Left] O2 Sat by Pulse 94 95 Oximetry Constitutional: no acute distress, other (elderly male with mildly increased respiratory effort at rest) Eyes: non-icteric ENT: oropharynx moist Neck: supple, no lymphadenopathy Effort: mildly labored Ascultation: Bilateral: diminished breath sounds Percussion: Bilateral: not dull Cardiovascular: regular rate and rhythm Gastrointestinal: normoactive bowel sounds, soft, non-tender, non-distended Integumentary: erythema, other (redness to LLext) Extremities: no cyanosis, other (Ischemia left leg.) Neurologic: non-focal exam, pupils equal and round, CN II-XII normal, motor strength normal and Psychiatric: mood appropriate, affect normal CBC and BMP: 08/24/20 21:49 08/24/20 07:16 ABG, PT/INR, D-dimer: PT/INR, D-dimer PT 13.9 Sec. (12.2-14.9) 08/24/20 21:49 INR 1.09 (0.87-1.13) 08/24/20 21:49 Abnormal lab findings: Abnormal Labs 08/22/20 08/22/20 08/22/20 12:51 12:51 12:51 RBC 5.16 H RDW 16.2 H Lymph % (Auto) [place] % (Auto) Lymph # (Auto) Seg Neutrophils % PT 11.5 L INR 0.86 L APTT 24.1 L Fibrinogen Heparin Anti-Xa Level Sodium BUN 21 H Creatinine Glucose Alkaline Phosphatase 135 H Total Creatine Kinase 08/22/20 08/22/20 08/23/20 12:51 16:37 04:25 RBC RDW 16.2 H Lymph % (Auto) [place] % (Auto) Lymph # (Auto) Seg Neutrophils % PT INR APTT Fibrinogen Heparin Anti-Xa Level < 0.10 L Sodium BUN Creatinine Glucose Alkaline Phosphatase Total Creatine Kinase 30 L 08/23/20 08/23/20 08/23/20 04:25 07:21 19:30 RBC RDW 16.0 H Lymph % (Auto) [place] % (Auto) Lymph # (Auto) Seg Neutrophils % 75.9 H PT INR APTT Fibrinogen Heparin Anti-Xa Level 0.14 L Sodium BUN Creatinine Glucose 101 H Alkaline Phosphatase Total Creatine Kinase 08/23/20 08/23/20 08/24/20 19:30 19:30 00:35 RBC RDW 15.9 H Lymph % (Auto) [place] % (Auto) Lymph # (Auto) Seg Neutrophils % 75.3 H PT INR APTT 134.1 H* Fibrinogen Heparin Anti-Xa Level Sodium 135 L BUN Creatinine 0.7 L Glucose 128 H Alkaline Phosphatase Total Creatine Kinase 08/24/20 08/24/20 08/24/20 00:35 07:16 07:16 RBC RDW 15.8 H Lymph % (Auto) 11.0 L [place] % (Auto) 8.8 H Lymph # (Auto) 0.9 L Seg Neutrophils % 79.8 H PT INR APTT Fibrinogen Heparin Anti-Xa Level 0.10 L Sodium BUN 21 H Creatinine Glucose 114 H Alkaline Phosphatase Total Creatine Kinase 08/24/20 08/24/20 08/24/20 07:16 12:56 12:56 RBC RDW 16.4 H Lymph % (Auto) [place] % (Auto) 9.7 H Lymph # (Auto) Seg Neutrophils % 74.2 H PT INR APTT Fibrinogen 163 L 184 L Heparin Anti-Xa Level 0.10 L < 0.10 L Sodium BUN Creatinine Glucose Alkaline Phosphatase Total Creatine Kinase 08/24/20 08/25/20 08/25/20 21:49 06:02 13:05 RBC RDW Lymph % (Auto) [place] % (Auto) Lymph # (Auto) Seg Neutrophils % PT INR APTT Fibrinogen Heparin Anti-Xa Level < 0.10 L < 0.10 L 0.13 L Sodium BUN Creatinine Glucose Alkaline Phosphatase Total Creatine Kinase 08/25/20 19:59 RBC RDW Lymph % (Auto) [place] % (Auto) Lymph # (Auto) Seg Neutrophils % PT INR APTT Fibrinogen Heparin Anti-Xa Level 0.22 L Sodium BUN Creatinine Glucose Alkaline Phosphatase Total Creatine Kinase Prior PFT's, U/S of legs: report reviewed Additional Studies: Arterial doppler study:08/22/20 Complete occulusion of superficial femoral and Popleteal artery. Venous doppler study left leg. No DVT. Allied health notes reviewed: nursing
[2020-08-28 16:48] VITALS: BP 124/71
== END 2020-08-28 17:56 | disposition home health service (06) | DRG 271 ==
LOC: ED 12:07 → 4A 15:01 → CC1 08-23 19:44 → IMCU 08-24 17:34 → 4A 08-26 12:31
PROVIDERS: ADMIT Internal Medicine; ATTEND Hospitalist
PROC: 047L3Z1 Dilation of Left Femoral Artery using Drug-Coated Balloon, Percutaneous Approach (ICD-10-PCS; principal; 2020-08-23)
PROC: 04CL3ZZ Extirpation of Matter from Left Femoral Artery, Percutaneous Approach (ICD-10-PCS; 2020-08-23)
PROC: 047N341 Dilation of Left Popliteal Artery with Drug-eluting Intraluminal Device, using Drug-Coated Balloon, Percutaneous Approach (ICD-10-PCS; 2020-08-23)
PROC: 047S3Z1 Dilation of Left Posterior Tibial Artery using Drug-Coated Balloon, Percutaneous Approach (ICD-10-PCS; 2020-08-23)
PROC: 04CN3ZZ Extirpation of Matter from Left Popliteal Artery, Percutaneous Approach (ICD-10-PCS; 2020-08-23)
PROC: 04CS3ZZ Extirpation of Matter from Left Posterior Tibial Artery, Percutaneous Approach (ICD-10-PCS; 2020-08-23)
PROC: B41G1ZZ Fluoroscopy of Left Lower Extremity Arteries using Low Osmolar Contrast (ICD-10-PCS; 2020-08-23)
PROC: B54BZZA Ultrasonography of Right Lower Extremity Veins, Guidance (ICD-10-PCS; 2020-08-23)
PROC: 04H Lower Arteries, Insertion (ICD-10-PCS; 2020-08-23)
PROC: 3E05317 Introduction of Other Thrombolytic into Peripheral Artery, Percutaneous Approach (ICD-10-PCS; 2020-08-23)
PROC: 04PY33Z Removal of Infusion Device from Lower Artery, Percutaneous Approach (ICD-10-PCS; 2020-08-24)
DX: I70.222 Atherosclerosis of native arteries of extremities with rest pain, left leg (principal); F17.213 Nicotine dependence, cigarettes, with withdrawal; I10 Essential (primary) hypertension; Z91.14 Patient's other noncompliance with medication regimen; F10.20 Alcohol dependence, uncomplicated
CPT/HCPCS: 36415; 37211; 37214; 37227; 37230; 37232; 70450; 75625; 75635; 75710; 76937; 80048; 80053; 82550; 85014; 85018; 85025; 85049; 85384; 85520; 85610; 85730; 93005; 99406; G0378; C1724; C1725; C1757; C1760; C1769; C1874; C1876; C1887; C2623; J0360; J1170; J1200; J1644; J2250; J2270; J2405; J2997; J3010; J3490; J7030; J7040; Q9967